=== PATIENT | male | born 1950 | race Caucasian/White ===

== ENCOUNTER 2018-06-28 10:30 | Outpatient (RCR) | payer OTHER, SELFPAY ==
--- NOTE | 2018-06-12 15:02 | PTTR_ITS ---
DATE: June 12, 2018 SUBJECTIVE: Michel returns to our clinic today having undergone a CHARLES revision performed by Dr. Ramirez in [place]. The patient reports the revision consisted of a cup liner replacement and femoral component replacement. The procedure was performed two weeks ago. He is sent with posterior hip precautions. At time of today's recheck: Pain number: 1/10 today and 6/10 at its worst Has had mild drainage from the incision. This is now covered by a Telfa pad. Has discussed this with his surgeon, and is independent with dressing changes. No redness or streaking is noted. Does have fullness through the leg due to some edema and mild lateral knee pain / distal IT band irritation. Meds: Celebrex and Eliquis x1 month post op. OBJECTIVE: Upon recheck - - Gait: The patient is independent with ambulation with use of a single axillary crutch on the left with a step through pattern. Mild antalgia noted. Mild decrease in extension at terminal stance on the right. ROM: Right hip ROM into flexion 75 A and 85 AA, abduction 25 A and 30 AA, external rotation 20 A and 30 AA, internal rotation was not tested secondary to precautions, extension 10 and flexion 120 with fullness reported at end range due to edema in the LE. Strength: Hip abduction 3-/5. Unable to perform any side lying anti gravity active abduction ROM. Quadriceps 4+/5 and hamstrings 4+/5, glute naresh 4-/5 compared to 5/5 on the left. Edema: The patient is noted to have significant edema throughout the thigh to the knee. He is wearing knee high Alberto Hose. Reports independence in elevation, and is icing the hip regularly. He admits with his other two hip replacements he experienced the same edema like presentation. Manual therapy: ([id number]). A/AAROM of the right hip through all planes, other than internal rotation. Worked on hamstring and quadriceps stretching. Therapeutic procedures ([id number]). * x See flow sheet: performed his HEP. This was progressed with hip extension self mobilization with gastroc soleus stretch, standing knee flexion for hamstrings, supine knee flexion abd/adduction to neutral and bridging. * * Ended with cryotherapy to the hip. Direct treatment time: 2:00 til 3:00 P.M. Assessment: Is holding up very well with pain control and ROM appears to be progressing well. I do feel he has excellent rehab potential, and appears very motivated to participate in P.T. ST wks 1) patient ambulating without an assisted device with minimal antalgia 2) increase strength by 1 grade or more for hip extension and hip abduction 3) patient's active hip ROM WNL LT wks 1) patient performing all self ADLs without limitations 2) decrease LEFS to less than 20% Plan: See patient 2x per week for progression of strengthening for hip stabilization and core stabilization exercises as well as manual therapy techniques for A/AAROM for the hip following precautions post operatively x6 weeks of no flexion past 90 , no crossing mid line and no internal rotation. Will discharge when the above goals have been met. Please contact me with any questions or concerns. Thank you for this referral. cc: Mark Rodriguez MM/john
--- NOTE | 2018-06-19 10:41 | PTTR_ITS ---
DATE: 06/19/18 SUBJECTIVE: Michel reports doing his HEP 2x per day. When he is thinking of it he tries to get in 3x per day, but has been more consistent with twice per day. No longer wearing his knee high Alberto Hose. He is now 3 wks post op, and admits his swelling is much more manageable. OBJECTIVE: Manual therapy: ([id number]). Right hip A/AAROM into flexion to 90 with empty end feel, abduction to 30 , ext rot to 30 to 35 and then performed hold relax mobs into abduction while positioned in supine. We then worked on AA hip extension in prone, achieving 10 to 15 . Then worked on quad stretch with hold relax in prone achieving 100 of knee flexion and hamstring stretching in supine. Therapeutic procedures ([id number]). * x See flow sheet: NuStep x7 min. at level #3. Progressed HEP with standing hip mobs into abduction as well as working on resisted partially bent knee SLR. * Ended with cryotherapy to the hip x10 minutes at no charge. Direct treatment time: 10:30 til 11:00 A.M. Assessment: Holding up well with ROM. In prone, with hip abducted by 5 to 10 he achieves close to 10 of internal rotation. Am not pushing this aggressively due to his precautions over the next couple of weeks. Incision is still covered by steri strips, and no drainage is noted. Plan: Continue as indicated above. MM/gc
--- NOTE | 2018-06-21 13:40 | PTTR_ITS ---
DATE: 06/21/18 SUBJECTIVE: Michel reports he hasn't been able to perform much of his HEP secondary to his busy work schedule at [employer]. Does feel that he is ambulating with less pain and is not using his single crutch for household ambulation, now. He shows up today without an assisted device. OBJECTIVE: Decreased stride length on the left LE as he comes off the involved LE prematurely, just following mid stance on the right. Manual therapy: ([id number]). Right hip A/AAROM into flexion, abduction, ext rotation and extension. The patient is blocked to 5 of extension on the right with anterior hip pain, likely some capsular restrictions. Discussed being a little more aggressive with his self mobilization into extension in standing. We worked on Grade 3 inferior glides, lateral distraction of the right hip followed by quadriceps and hamstring stretching. Direct treatment time: 10:30 til 11:00 A.M. Completed NuStep ending with ice post treatment. Assessment: Tight with end stage extension impacting his stride length on his left, as he is prematurely deweighting the right LE due to lack of extension. Will have him work on self mobilization techniques into extension, standing at his walker or against a wall, as working his abduction in a wide base of support stance with a trunk shift / weight shift to the left. Plan: Continue as indicated above. MM/gc
--- NOTE | 2018-06-26 15:10 | PTTR_ITS ---
DATE: 06/26/18 SUBJECTIVE: Michel states he has been more diligent with his self mobilization. Feels as though this has helped his abduction. Reports negotiating stairs reciprocally up and down with use of a railing. Has not been walking with an assisted device. OBJECTIVE: Manual therapy: ([id number]). Right hip mobs inferiorly and laterally, distractions, AAROM through flexion achieving 95 with empty end feel. Holding off to avoid surpassing excessively with his precautions. Abduction 30 to 35 . External rotation 35 with hold relax mobs and manual distraction. Performed hip flexor and quadriceps stretching in the modified Jose test position. Completed strengthening via Wellness with Garrett Guerrero ATC. He was set up on an in clinic program for core and hip stabilization. Direct treatment time: 30 min. from 10:30 til 11:00 A.M. Plan: Continue as indicated above. MM/gc
--- NOTE | 2018-06-28 10:30 | PTTR_ITS ---
DATE: 06/28/18 SUBJECTIVE: Michel states that he has been compliant with his HEP for strengthening. Is noticing better improvement with his abduction. Last day on his blood thinners is today. Manual therapy: ([id number]). R hip mobilization, lateral distraction, inferior glides as well as some anterior mobilization in prone with some extension AA motion, achieving 10 degrees. Also perform some quad and hip flexor stretching in prone and supine modified Jose test position. Did perform AAROM into hip abduction achieving nearly 35-40 degrees and ER mobilization in prone with knee flexed at 90 to 30-35 degrees. Ended with cryotherapy for 10 mins to the hip. Direct treatment time: 30 mins Total treatment time: 30 mins A: Making great gains with ROM. Still pretty tight with his extension. Will want to work on this a little more aggressively next visit. P:Continue 2x a week for mobilization, progressing into Therex with Garrett Guerrero , ATC MM/dl
== END 2018-06-29 23:59 | disposition home or self-care (01) ==
LOC: PT 10:30
PROVIDERS: PCP Family Medicine; Referring Provider Orthopaedic Surgery; Visit Provider Orthopaedic Surgery
DX: Z47.1 Aftercare following joint replacement surgery (principal); Z96.641 Presence of right artificial hip joint; G89.29 Other chronic pain; M25.551 Pain in right hip
CPT/HCPCS: 97110; 97140

== ENCOUNTER 2019-03-28 17:48 | Outpatient (REF) | payer OTHER, SELFPAY ==
[2019-03-28 21:04] LABS: Absolute Basophil Count 0.02 k/cumm (0.0-0.2); Absolute Eosinophil Count 0.07 k/cumm (0.0-0.7); Absolute Lymphocyte Count 1.26 k/cumm (1.2-3.4); Absolute Monocyte Count 0.38 k/cumm (0.11-0.7); Absolute Neutrophil Count 2.35 k/cumm (1.2-6.7); Basophils % 0.5; Eosinophils % 1.7; HGB 14.3 g/dL (13.5-17.5); Lymphocytes % 30.9; Mean Corp. HGB Concentration 34.9 g/dL (32.0-36.0); Mean Corpuscular Hemoglobin 34.5 pg (27.0-33.0); Mean Platelet Volume 10.6 fL (8.0-11.0); Monocytes % 9.3; Neutrophils % 57.6; Platelet Count 161 x1000/uL (130-400); RBC 4.14 m/cumm (4.50-6.00); RBC Distribution Width 11.9 % (11.8-14.1); White Blood Cell Count 4.08 k/cumm (4.4-10.8)
[2019-03-28 21:16] LABS: ALT 27 U/L (12-78); AST 26 U/L (15-37); Lipase 95 U/L (73-393)
[2019-04-02 13:17] LABS: Methylmalonic Acid 0.18 nmol/mL (<=0.40)
== END 2019-03-28 18:08 ==
LOC: NCHCN 17:48
PROVIDERS: PCP Family Medicine; Visit Provider Family Medicine
DX: R10.9 Unspecified abdominal pain (principal)
CPT/HCPCS: 80186; 83690; 84450; 84460; 85025

== ENCOUNTER 2019-05-24 11:52 | Outpatient (REF) | payer OTHER, SELFPAY | END 2019-05-24 12:12 | LOC: NCHCN 11:52 | PROVIDERS: PCP Family Medicine; Visit Provider Family Medicine | DX: R19.4 Change in bowel habit (principal) | CPT/HCPCS: 87177 ==

== ENCOUNTER 2019-10-03 15:43 | Outpatient (REF) | payer OTHER, SELFPAY ==
[2019-10-07 12:45] LABS: PSA, Screening 0.6 ng/mL (0.0-4.5)
== END 2019-10-03 16:03 ==
LOC: NCHCN 15:43
PROVIDERS: PCP Family Medicine; Visit Provider Family Medicine
DX: Z00.00 Encounter for general adult medical examination without abnormal findings (principal); Z12.5 Encounter for screening for malignant neoplasm of prostate
CPT/HCPCS: 84153

== ENCOUNTER 2019-12-05 11:39 | Outpatient (CLI) | payer OTHER, SELFPAY ==
--- NOTE | 2019-12-05 11:47 | DI.RAD_ITS ---
EXAM: XR HIP RT AP LAT ONLY CLINICAL HISTORY: HIP PAIN TECHNIQUE: COMPARISON: No exams were available for comparison FINDINGS: Three views were obtained. There is a total hip joint replacement in position. Components appear we ll seated. No other significant bony seen. IMPRESSION:
== END 2019-12-05 11:59 ==
PROVIDERS: PCP Family Medicine; Visit Provider Student in an Organized Health Care Education/Training Program
DX: M25.551 Pain in right hip (principal); Z96.641 Presence of right artificial hip joint
CPT/HCPCS: 73502

== ENCOUNTER 2020-10-09 14:25 | Outpatient (REF) | payer OTHER, SELFPAY ==
[2020-10-09 19:09] LABS: Abs Immature Grans 0.01 10^3/uL (0.0-0.06); Absolute Basophil Count 0.04 10^3/uL (0.0-0.2); Absolute Eosinophil Count 0.08 10^3/uL (0.0-0.7); Absolute Lymphocyte Count 1.76 10^3/uL (1.2-3.4); Absolute Monocyte Count 0.52 10^3/uL (0.1-0.8); Absolute Neutrophil Count 2.28 10^3/uL (1.2-6.7); Basophils % 0.9; Eosinophils % 1.7; HCT 42.6 % (40.0-50.0); HGB 14.9 g/dL (13.5-17.5); Immature Grans % 0.2; Lymphocytes % 37.5; MCH 34.6 pg (27.0-33.0); MCV 98.8 fL (80-95); MPV 11.7 fL (8.0-11.0); Monocytes % 11.1; Neutrophils % 48.6; Nucleated RBC 0 %; Platelet Count 178 10^3/uL (130-400); RBC 4.31 10^6/uL (4.36-5.78); RDW 11.4 % (11.8-14.1); RDW-SD 42.3 fL; WBC 4.69 10^3/uL (4.4-10.8)
[2020-10-09 19:53] LABS: ALT 24 U/L (16-63); AST 29 U/L (15-37); Albumin 3.9 g/dL (3.4-5.0); Alkaline Phosphatase 92 U/L (46-116); Anion Gap 8.6 mmol/L (3-11); BUN 18 mg/dL (7-18); Bilirubin, Total 0.7 mg/dL (0.2-1.0); CO2 28.4 mmol/L (21.0-32.0); CREATININE 1.08 mg/dL (0.70-1.30); Calcium 8.8 mg/dL (8.5-10.1); Calculated LDL 91 mg/dL (<100); Chloride 103 mmol/L (98-107); Cholesterol 165 mg/dL (<200); Glucose 87 mg/dL (74-106); HDL Cholesterol 62 mg/dL (40-60); Potassium 4.1 mmol/L (3.5-5.1); Sodium 140 mmol/L (136-145); Total Protein 6.9 g/dL (6.4-8.2); Triglyceride 63 mg/dL (<150); Vitamin B12 315 pg/mL (193-986)
[2020-10-09 19:59] LABS: Lipase 67 U/L (73-393)
[2020-10-12 09:59] LABS: PSA, Screening 0.6 ng/mL (0.0-4.5)
== END 2020-10-09 14:45 ==
LOC: NCHCN 14:25
PROVIDERS: PCP Family Medicine; Visit Provider Family Medicine
DX: Z00.00 Encounter for general adult medical examination without abnormal findings (principal); Z13.220 Encounter for screening for lipoid disorders; Z13.228 Encounter for screening for other metabolic disorders; Z12.5 Encounter for screening for malignant neoplasm of prostate
CPT/HCPCS: 80053; 80061; 83690; 84153; 82607; 85025

== ENCOUNTER 2020-10-29 11:38 | Outpatient (REF) | payer OTHER, SELFPAY ==
--- NOTE | 2020-10-29 10:45 | SKI_PTH ---
PATIENT: Michel Kilgore LOC: [facility] U#:[id number] AGE/SX: 70/M ROOM: RE10/29/[address]: FABIANA Soares : 1950 BED: DIS: 10/29/2020 SPEC #: [id number] RECD: 10/29/20 12:56 STATUS: MARION REQ #: [id number] MANSI: 10/29/20 10:[address]: Aracelis Wei DEPT: Surgical Specimen RECD BY: Martha Rush ENTERED: 10/29/20 12:57 SP TYPE: LEVON OTHR DR: Jessica Longoria V Tissues: 1 - SKIN BIOPSY(SHAVE/PUNCH) Procedures: IMMUNOPEROXIDASE STAIN GROSS AND MICRO LEVEL 3 Comments: [id number]
== END 2020-10-29 11:58 ==
LOC: LBN 11:38
PROVIDERS: PCP Family Medicine; Visit Provider Physical Therapy Assistant
DX: M67.88 Other specified disorders of synovium and tendon, other site (principal); M67.48 Ganglion, other site
CPT/HCPCS: 88304; 88305; 88361

== ENCOUNTER 2021-06-20 15:00 | Observation (INO) | payer OTHER, SELFPAY ==
[2021-06-20] VITALS (21 sets, daily range): BP systolic 115–178; BP diastolic 61–84; PULSE 47–76; RESP 16–22; TEMP 36.1–36.8; O2SAT 94–100
--- NOTE | 2021-06-20 15:00 | RT.EKG_ITS ---
APPROVED REPORT Exam: Resting ECG Reason for Exam: confusion Patient Location: E HR:56 bpm ECG Measurements Heart Rate 56 AXIS AZ 229 P 0 QRSd 121 QRS -52 QT 446 T 24 QTc 418 Conclusion Sinus bradycardia...rate< 60 Atrial premature complex...SV complex w/ short R-R interval Prolonged AZ interval...AZ >220, V-rate 50- 90 Right bundle branch block...QRSd>120, terminal axis(90,270) Inferior infarct, old...Q >35mS, II III aVF. Sinus. RBBB. No STEMI. I have reviewed and interpreted ECG and agree with software generated interpretation.
--- NOTE | 2021-06-20 15:05 | ED.GENADUL_ITS ---
Discharge Plan Disposition Patient Disposition: [facility] INPATIENT Condition: Stable Discharge Details Clinical Impression: Amnesia, Confusion Primary Care Provider: Jessica Longoria V ED Provider: Yissel Hopkins Home Meds and New Rx's Prescriptions: No Action famotidine 10 mg tablet 10 mg PO DAILY RF: 0 multivitamin [Daily Multi-Vitamin] Tablet 1 tab PO DAILY RF: 0 Gaviscon Extra Strength 254-237.5 mg/5 mL suspension 5 ml PO TID RF: 0 magnesium 200 MG tablet 200 mg PO HS RF: 0 cholecalciferol (vitamin D3) 1,000 UNITS tablet 1 tab PO DAILY RF: 0 Medical Decision Making 71-year-old male with a history of GERD presents for confusion and memory loss that occurred during an 11 mile bike ride prior to arrival. EKG notes a rate of 56, sinus, right bundle branch block, no STEMI. Vitals within normal limits. Patient states his heart rate is usually in the 40s. Patient appears comfortable and nontoxic. He has no focal deficits. Suspect most likely dehydration in the setting of possibly low blood sugar or low blood pressure. Also consider transient global amnesia, acute CVA, electrolyte abnormality, arrhythmia. Will place an IV, bolus IV fluids, screening labs, CTA head and neck and reassess. Labs and imaging reviewed and unremarkable. Normal white blood cell count. Normal electrolytes. Troponin negative. Urinalysis notes blood but no acute infection. CTA head and neck and chest x-ray negative. Patient reassessed after fluids and feels better. Discussed that in the setting of amnesia and confusion, will recommend admission overnight for telemetry monitoring with plan for MRI brain and neurology evaluation tomorrow. Case discussed with hospitalist who accepts patient for admission. Consult placed to [facility] neurology for recommendations. [facility] neurology agrees that this potentially could be transient global amnesia - agrees with plan for MRI brain and also recommends EEG -- recommends aspirin if this is potentially a cardioembolic event. Medical Records Medical records reviewed: Yes I reviewed the patient's medical records. Imaging Data Radiologic Study: Radiologist's impression: CT Angiography Head With Contrast, Arteriography Exam date and time: 06/20/2021 4:13 PM Age: 71 years old Clinical indication: Other: Possible CVA, R/O acute disease TECHNIQUE: Imaging protocol: Computed tomography angiography of the head with contrast. Exam focused on the arteries. 3D rendering (Not supervised by radiologist): MIP and/or 3D reconstructed images were created by the technologist. Contrast material: OMNIPAQUE 350; Contrast volume: 85 ml; Contrast route: INTRAVENOUS (IV); COMPARISON: No relevant prior studies available. FINDINGS: The bolus of contrast is low on CTA of head. ANTERIOR CIRCULATION: Right internal carotid artery: Intracranial segment is patent with no significant stenosis. No aneurysm. Right middle cerebral artery: No occlusion or significant stenosis. No aneurysm. Right anterior cerebral artery: No occlusion or significant stenosis. No aneurysm. Left internal carotid artery: Intracranial segment is patent with no significant stenosis. No aneurysm. Left middle cerebral artery: No occlusion or significant stenosis. No aneurysm. Left anterior cerebral artery: No occlusion or significant stenosis. No aneurysm. POSTERIOR CIRCULATION: Right vertebral artery: No occlusion or significant stenosis. No aneurysm. Left vertebral artery: No occlusion or significant stenosis. No aneurysm. Basilar artery: No occlusion or significant stenosis. No aneurysm. Right posterior cerebral artery: . No occlusion or significant stenosis. No aneurysm. Left posterior cerebral artery: No occlusion or significant stenosis. No aneurysm. Brain: No definite mass, mass effect, or midline shift. Cerebral ventricles: No ventriculomegaly. Pituitary gland and sella: There is a partial empty sella. Bones/joints: No acute fracture. Soft tissues: Unremarkable. Paranasal sinuses: There is mild mucous retention cyst or polyp in the left maxillary sinus. Mild mucosal thickening in the bilateral frontal sinuses, anterior ethmoidal air cells. IMPRESSION: 1. No major vessel cut off or high-grade stenosis in the arteries of the [id number]. 2. No acute intracranial abnormality. CT Angiography Neck With Contrast Exam date and time: 06/20/2021 4:13 PM Age: 71 years old Clinical indication: Other: Possible CVA, R/O acute disease TECHNIQUE: Imaging protocol: Computed tomography angiography of the neck with contrast. 3D rendering (Not supervised by radiologist): MIP and/or 3D reconstructed images were created by the technologist. Contrast material: OMNIPAQUE 350; Contrast volume: 85 ml; Contrast route: INTRAVENOUS (IV); COMPARISON: No relevant prior studies available. FINDINGS: Right common carotid artery: No stenosis. No dissection or occlusion. Right internal carotid artery: No stenosis of the extracranial segment. No dissection or occlusion. Right external carotid artery: No occlusion or stenosis of the origin. Left common carotid artery: No stenosis. No dissection or occlusion. Left internal carotid artery: There calcification of left carotid bifurcation and origin of the left internal carotid artery without significant stenosis by NASCET criteria. No stenosis of the extracranial segment. No dissection or occlusion. Left external carotid artery: No occlusion or stenosis of the origin. Right vertebral artery: No stenosis. No dissection or occlusion. Left vertebral artery: No stenosis. No dissection or occlusion. Thyroid: There is a 6 mm nodule in the left lobe of the thyroid gland suspected. Soft tissues: Normal. No significant soft tissue swelling. Bones/joints: No acute fracture. There are degenerative changes in the cervical spine. There is focal at the level of C6. There is prominent posterior osteophyte spurring at C4-C5, C5-C6 without critical spinal canal stenosis. Moderate loss of disc height at C4-C5, C5-C6 and C6-C7 present. ossification of the posterior lung which or ligaments . IMPRESSION: 1. No internal carotid artery stenosis by NASCET criteria or occlusion. 2. No stenosis in the vertebral arteries in the neck. Lab Data Lab results reviewed: Yes I reviewed the patient's lab results. Labs: Laboratory Tests Range/Units 06/20/21 06/20/21 06/20/21 15:20 15:35 15:35 WBC (4.4-10.8) 10^3/uL 5.94 RBC (4.36-5.78) 10^6/uL 4.58 Hgb (13.5-17.5) g/dL 15.4 Hct (40.0-50.0) % 45.7 MCV (80-95) fL 99.8 H MCH (27.0-33.0) pg 33.6 H MCHC (32.0-36.0) % 33.7 RDW (11.8-14.1) % 11.7 L Plt Count (130-400) 10^3/uL 164 MPV (8.0-11.0) fL 9.3 Immature Gran % 0.3 Neutrophils % 71.3 Lymphocytes % 20.2 Monocytes % 7.4 Eosinophils % 0.5 Basophils % 0.3 Nucleated RBC % % 0 Absolute Neutrophils (1.2-6.7) 10^3/uL 4.23 Absolute Lymphocytes (1.2-3.4) 10^3/uL 1.20 Absolute Monocytes (0.1-0.8) 10^3/uL 0.44 Absolute Eosinophils (0.0-0.7) 10^3/uL 0.03 Absolute Basophils (0.0-0.2) 10^3/uL 0.02 Sodium (136-145) mmol/L 144 Potassium (3.5-5.1) mmol/L 4.7 Chloride (98-107) mmol/L 105 Carbon Dioxide (21.0-32.0) mmol/L 28.1 Anion Gap (3-11) mmol/L 10.9 BUN (7-18) mg/dL 18 Creatinine (0.70-1.30) mg/dL 1.4 H Estimated GFR/1.73 m2 (mL/min/1.73m2) 50.25 Glucose (74-106) mg/dL 87 Calcium (8.5-10.1) mg/dL 9.2 Magnesium (1.8-2.4) mg/dL 2.0 Total Bilirubin (0.2-1.0) mg/dL 1.2 H AST (15-37) U/L 29 ALT (16-63) U/L 24 Alkaline Phosphatase (46-116) U/L 94 Troponin I (<0.06) ng/mL < 0.05 Total Protein (6.4-8.2) g/dL 7.7 Albumin (3.4-5.0) g/dL 4.1 Urine Color (Yellow) Yellow Urine Clarity (Clear) Clear Urine pH (5-8) 7.0 Ur Specific [place] (1.005-1.025) 1.015 Urine Protein (Negative) mg/dL 30 H Urine Ketones (Negative) mg/dL Trace H Urine Blood (Negative) Trace-intact H Urine Nitrite (Negative) Negative Urine Bilirubin (Negative) Negative Urine Urobilinogen (Up TO 0.2) EU/dL 0.2 Ur Leukocyte Esterase (Negative) Negative Urine RBC (0-2) HPF 3-5 H Urine WBC (0-5) HPF 0-2 Ur Epithelial Cells (Negative) HPF Negative Urine Crystals (Negative) HPF Negative Urine Bacteria (Negative) HPF Rare Urine Casts (Negative) LPF >50 Hyaline Urine Mucus (Negative) Heavy Ur Culture Indicated? No Urine Glucose (Negative) mg/dL Negative ECG Data Attestation: I personally reviewed and interpreted this ECG (s) as follows: Interpretation: rate of 56, sinus, RBBB. PACs. Prolonged CT interval at 229. QTc 418. HPI General Mode of arrival: ambulatory . Date/Time Provider Initiated Documentation: 06/20/21 15:00 . Limitations to Documentation: no limitations . Information obtained by: patient . HPI Narrative: Patient is a 71-year-old male with a history of GERD who presents to the ED with complaint of confusion, disorientation and memory loss that occurred during a bike ride today. Patient states he ate a banana this morning which is less than usual and then went on a bike ride. He states he does not have memory of the hours before the bike ride or during the bike ride. He states the friend became concerned when during the bike ride he kept repeating himself and complained to his friend that he felt disoriented. states that patient was noted to make repetitive statements on the way to the ED with his friend. Patient states he drank plenty of water today. He states he went on an 11 mile bike ride today which is not unusual for him. He denies dizziness but states he felt off . He denies any recent illness, fever, headache, dizziness, chest pain, shortness of breath, nausea, vomiting, new medications, recent travel or known sick contacts. Related Data Home Medications Medication Instructions Recorded Confirmed cholecalciferol (vitamin D3) 1 tab PO DAILY 07/22/15 06/20/21 magnesium 200 mg PO HS 07/22/15 06/20/21 famotidine 10 mg tablet 10 mg PO DAILY 12/05/19 06/20/21 aluminum hydrox-magnesium carb 254 5 ml PO TID 10/29/20 06/20/21 mg-237.5 mg/5 mL oral suspension multivitamin 1 tab PO DAILY 10/29/20 06/20/21 Allergies Allergy/AdvReac Type Severity Reaction Status Date / Time hayfever Allergy Uncoded 06/20/21 15:09 Review of Systems All systems reviewed & are unremarkable except as noted in HPI and below Constitutional Constitutional: Reports as per HPI, Denies chills and Denies fever(s) Eyes Eyes: Denies blurry vision ENT Ears, Nose, Mouth, and Throat: Denies dizziness, Denies sore throat and Denies throat swelling Cardiovascular Cardiovascular: Denies chest pain and Denies dyspnea Respiratory Respiratory: Denies cough and Denies dyspnea Gastrointestinal Gastrointestinal: Denies abdominal pain, Denies diarrhea and Denies vomiting Genitourinary Genitourinary: Denies hematuria and Denies dysuria Musculoskeletal Musculoskeletal: Denies back pain and Denies numbness Integumentary/Breasts Skin/Breast: Denies lesions and Denies rash Neurologic Neurologic: Denies dizziness, Denies localized weakness and Denies numbness Allergic/Immunologic Allergic/Immunologic: Denies throat swelling [facility] Medical History (Updated 06/20/21 @ 17:58 by Yissel Hopkins DO) GERD (gastroesophageal reflux disease) Surgical History (Updated 06/20/21 @ 16:56 by Yissel Hopkins DO) History of hip replacement Social History Smoking/Tobacco Use Status: Never Smoking risk assessment performed?: Yes Alcohol Intake: current Alcohol Intake frequency: holidays/special occasions only Drug use: Never Substance use type: does not use Current gender identity: male Exam Const General: cooperative, healthy appearing and no acute distress HENMT Head: normal to inspection Face and sinus: normal facial exam Eyes General: appearance normal, both eyes and all related structures Pupils: PERRL EOM: EOM intact bilaterally Neck Neck: normal visual inspection and No submandibular swelling Lymphatic: no lymphadenopathy noted Chest Chest: normal inspection of the chest and no tenderness Resp Effort & Inspection: normal respiratory effort and able to speak in complete sentences Auscultation: clear to auscultation bilaterally Cardio Rate: regular rate Rhythm: regular rhythm GI Inspection: normal to inspection Palpation: soft, not firm, not rigid and nontender Auscultation: normal bowel sounds Skin General skin exam: no rashes or lesions noted Neuro General: patient alert, patient awake, patient oriented x3, moves all extremities, no meningeal signs and no focal motor deficits Cognition: normal cognition Speech: speech normal Motor: muscle tone normal throughout, strength 5/5 throughout and no pronator drift Sensory Exam: no sensory deficits noted Extrem General: normal to inspection, full ROM, capillary refill normal, no calf tenderness bilaterally and no edema Psych Appearance: grossly normal Mental Status: mental status grossly normal Speech and Movement: speech and movement normal Affect: normal affect
[2021-06-20 15:24] LABS: Bilirubin Negative (Negative); Blood Trace-intact (Negative); Clarity Clear (Clear); Glucose Negative (Negative); Ketones Trace mg/dL (Negative); Leukocyte Esterase Negative (Negative); Nitrite Negative (Negative); Specific Gravity 1.015 (1.005-1.025); Urobilinogen 0.2 EU/dL (Up TO 0.2)
[2021-06-20 15:33] LABS: Bacteria Rare HPF (Negative); C & S Indicated? No; Crystals Negative HPF (Negative); Epithelial Cells Negative HPF (Negative); Mucus Heavy (Negative); WBC 0-2 HPF (0-5)
[2021-06-20 15:43] LABS: Abs Immature Grans 0.02 10^3/uL (0.0-0.06); Absolute Basophil Count 0.02 10^3/uL (0.0-0.2); Absolute Eosinophil Count 0.03 10^3/uL (0.0-0.7); Absolute Monocyte Count 0.44 10^3/uL (0.1-0.8); Absolute Neutrophil Count 4.23 10^3/uL (1.2-6.7); Basophils % 0.3; Eosinophils % 0.5; HCT 45.7 % (40.0-50.0); HGB 15.4 g/dL (13.5-17.5); Immature Grans % 0.3; Lymphocytes % 20.2; MCH 33.6 pg (27.0-33.0); MCHC 33.7 % (32.0-36.0); MCV 99.8 fL (80-95); MPV 9.3 fL (8.0-11.0); Monocytes % 7.4; Neutrophils % 71.3; Nucleated RBC 0 %; Platelet Count 164 10^3/uL (130-400); RBC 4.58 10^6/uL (4.36-5.78); RDW 11.7 % (11.8-14.1); RDW-SD 43.1 fL; WBC 5.94 10^3/uL (4.4-10.8)
[2021-06-20] MEDS: Normal Saline 1,000 ML 1000 ML IV (15:49)
--- NOTE | 2021-06-20 16:00 | DI.CT_ITS ---
Exam(s) CT BRAIN NECK CTA EXAM: CT BRAIN NECK CTA CLINICAL HISTORY: transient amnesia, r/o acute cva. TECHNIQUE: Imaging Protocol: Axial CT angiography was performed with multi-slice acquisition and mu lti-planar and/or 3D reconstructions. CONTRAST MATERIAL: Intravenous: Omnipaque 350 Contrast volume:85cc COMPARISON: No exams were available for comparison FINDINGS: CTA Neck W: Aortic arch anatomy: The aortic arch anatomy is conventional. Anterior circulation: Both common carotid arteries ascend with normal luminal diameters. There is mild calcified plaque on the medial wall of the proximal right ICA without significant stenosis at this level. No soft plaqu e evident. The right internal carotid artery above this level is nicely patent in the upper neck skull base-cartwright tid canal. The left carotid bifurcation exhibits plaque both arora but no significant stenosis and there is no s ignificant stenosis in the proximal left internal carotid artery nor in this vessel more superiorly i n the neck and skull base. Posterior circulation: Both vertebral arteries originated conventional fashion off of the subclavian arteries and there is n o significant stenosis in the subclavian arteries proximal to the vertebral artery takeoff points. I n the foramen transverse area and both vertebral arteries ascend with normal equal luminal diameters and no evidence of thrombosis nor dissection. At the skull base both vertebral arteries contribute t o the formation basilar artery. CTA Brain W: Anterior circulation: Both internal carotid arteries are patent in the skull base-carotid canals as well as in the cavernou s sinuses. Calcified plaque seen in the supraclinoid aspect of these vessels but no tight stenosis. Both middle cerebral arteries appear patent out to the sylvian fissure branches. Both A1 segments a re patent. Both anterior cerebral arteries are patent. There is no evidence of aneurysm at the leve l of the anterior communicating artery. Posterior circulation: Basilar arteries patent and ascends in the midline. Distally the basilar artery terminates as patent bilateral posterior cerebral arteries. There is no aneurysm at the tip of the basilar artery. The superior cerebellar arteries are poorly opacified. There is no evidence of aneurysm at the tip of th e basilar artery. CT BRAIN: There is no evidence of intracranial hemorrhage, mass effect, or shift of midline structures. There are no extra-axial fluid collections. Ventricles are not enlarged or shifted and there is no blood w ithin the ventricular system nor within the basal cisterns. There are no ring enhancing lesions in t he brain and no abnormal meningeal enhancement. IMPRESSION: 1. There is mild calcified plaque at the carotid bifurcations, slightly more so on the left side. Ho wever, there is no significant stenosis evident at these levels nor elsewhere in the neck. Both vert ebral arteries are patent. 2. No evidence of intraluminal thrombosis nor aneurysm in the anterior intracranial circulation. 3. In the posterior intracranial circulation there is less than typically seen opacification of both superior cerebellar arteries, possibly significant. Posterior cerebral arteries are patent bilatera lly. No evidence of significant atherosclerotic disease in the basilar artery. 4. No acute intracranial findings. No ring enhancing lesions in the brain and no abnormal meningea l enhancement. RADIATION DOSE DELIVERED: 2,108.58mGy.cm Total DLP DATA REPOSITORY: All CT scans at this facility are submitted to the National Radiology Data Registry (NRDR) Dose Index Registry (DIR) with the [employer] (A[employer]). RADIATION OPTIMIZATION: All CT scans at this facility use at least one of these dose optimization te chniques: automated exposure control; mA and/or kV adjustment per patient size (includes targeted exa ms where dose is matched to clinical indication); or iterative reconstruction.
[2021-06-20 16:07] LABS: Albumin 4.1 g/dL (3.4-5.0); BUN 18 mg/dL (7-18); CREATININE 1.4 mg/dL (0.70-1.30); Calcium 9.2 mg/dL (8.5-10.1); Estimated GFR 50.25 (mL/min/1.73m2); Glucose 87 mg/dL (74-106); Total Protein 7.7 g/dL (6.4-8.2)
[2021-06-20 16:08] LABS: ALT 24 U/L (16-63); AST 29 U/L (15-37); Alkaline Phosphatase 94 U/L (46-116); Anion Gap 10.9 mmol/L (3-11); Bilirubin, Total 1.2 mg/dL (0.2-1.0); CO2 28.1 mmol/L (21.0-32.0); Chloride 105 mmol/L (98-107); Potassium 4.7 mmol/L (3.5-5.1); Sodium 144 mmol/L (136-145); Troponin I < 0.05 ng/mL (<0.06)
--- NOTE | 2021-06-20 16:45 | DI.RAD_ITS ---
Exam(s) XR CHEST 2V PA LATERAL EXAM: XR CHEST 2V PA LATERAL CLINICAL HISTORY: possible cva, r/o acute disease. TECHNIQUE: 2D digital imaging was performed. COMPARISON: No exams were available for comparison FINDINGS: Heart size is normal. The mediastinum is not widened. Lungs are clear. No infiltrates nor pleural effusions. IMPRESSION: No acute pulmonary findings. DATA REPOSITORY: RADIATION DOSE DELIVERED:
[2021-06-20] MEDS: Omnipaque 350 MG/ML 100 ML BTL IJ (16:52)
--- NOTE | 2021-06-20 17:04 | DI.VRAD_ITS ---
PROCEDURE INFORMATION: Exam: XR Chest Exam date and time: 06/20/2021 4:51 PM Age: 71 years old Clinical indication: Other: Possible CVA, R/O acute disease TECHNIQUE: Imaging protocol: XR of the chest. Views: 2 views. COMPARISON: CR RIGHT CLAVICLE 07/22/2015 6:40 PM FINDINGS: Lungs: Lungs are hyperinflated with flattening of the hemidiaphragms. No focal consolidation. Pleural spaces: No pleural effusion. No pneumothorax. Heart/Mediastinum: No cardiomegaly. Bones/joints: Unremarkable. IMPRESSION: No acute pulmonary process. Dictated and Authenticated by: Vicente Naidu MD. Ordering:TONIA Dey MD
--- NOTE | 2021-06-20 17:19 | DI.VRAD_ITS ---
PROCEDURE INFORMATION: Exam: CT Angiography Head With Contrast, Arteriography Exam date and time: 06/20/2021 4:13 PM Age: 71 years old Clinical indication: Other: Possible CVA, R/O acute disease TECHNIQUE: Imaging protocol: Computed tomography angiography of the head with contrast. Exam focused on the arteries. 3D rendering (Not supervised by radiologist): MIP and/or 3D reconstructed images were created by the technologist. Contrast material: OMNIPAQUE 350; Contrast volume: 85 ml; Contrast route: INTRAVENOUS (IV); COMPARISON: No relevant prior studies available. FINDINGS: The bolus of contrast is low on CTA of head. ANTERIOR CIRCULATION: Right internal carotid artery: Intracranial segment is patent with no significant stenosis. No aneurysm. Right middle cerebral artery: No occlusion or significant stenosis. No aneurysm. Right anterior cerebral artery: No occlusion or significant stenosis. No aneurysm. Left internal carotid artery: Intracranial segment is patent with no significant stenosis. No aneurysm. Left middle cerebral artery: No occlusion or significant stenosis. No aneurysm. Left anterior cerebral artery: No occlusion or significant stenosis. No aneurysm. POSTERIOR CIRCULATION: Right vertebral artery: No occlusion or significant stenosis. No aneurysm. Left vertebral artery: No occlusion or significant stenosis. No aneurysm. Basilar artery: No occlusion or significant stenosis. No aneurysm. Right posterior cerebral artery: . No occlusion or significant stenosis. No aneurysm. Left posterior cerebral artery: No occlusion or significant stenosis. No aneurysm. Brain: No definite mass, mass effect, or midline shift. Cerebral ventricles: No ventriculomegaly. Pituitary gland and sella: There is a partial empty sella. Bones/joints: No acute fracture. Soft tissues: Unremarkable. Paranasal sinuses: There is mild mucous retention cyst or polyp in the left maxillary sinus. Mild mucosal thickening in the bilateral frontal sinuses, anterior ethmoidal air cells. IMPRESSION: 1. No major vessel cut off or high-grade stenosis in the arteries of the [id number]. 2. No acute intracranial abnormality. PROCEDURE INFORMATION: Exam: CT Angiography Neck With Contrast Exam date and time: 06/20/2021 4:13 PM Age: 71 years old Clinical indication: Other: Possible CVA, R/O acute disease TECHNIQUE: Imaging protocol: Computed tomography angiography of the neck with contrast. 3D rendering (Not supervised by radiologist): MIP and/or 3D reconstructed images were created by the technologist. Contrast material: OMNIPAQUE 350; Contrast volume: 85 ml; Contrast route: INTRAVENOUS (IV); COMPARISON: No relevant prior studies available. FINDINGS: Right common carotid artery: No stenosis. No dissection or occlusion. Right internal carotid artery: No stenosis of the extracranial segment. No dissection or occlusion. Right external carotid artery: No occlusion or stenosis of the origin. Left common carotid artery: No stenosis. No dissection or occlusion. Left internal carotid artery: There calcification of left carotid bifurcation and origin of the left internal carotid artery without significant stenosis by NASCET criteria. No stenosis of the extracranial segment. No dissection or occlusion. Left external carotid artery: No occlusion or stenosis of the origin. Right vertebral artery: No stenosis. No dissection or occlusion. Left vertebral artery: No stenosis. No dissection or occlusion. Thyroid: There is a 6 mm nodule in the left lobe of the thyroid gland suspected. Soft tissues: Normal. No significant soft tissue swelling. Bones/joints: No acute fracture. There are degenerative changes in the cervical spine. There is focal at the level of C6. There is prominent posterior osteophyte spurring at C4-C5, C5-C6 without critical spinal canal stenosis. Moderate loss of disc height at C4-C5, C5-C6 and C6-C7 present. ossification of the posterior lung which or ligaments . IMPRESSION: 1. No internal carotid artery stenosis by NASCET criteria or occlusion. 2. No stenosis in the vertebral arteries in the neck. REFERENCES: NASCET CRITERIA. The degree of internal carotid artery stenosis is based on NASCET criteria. Normal is no stenosis. Mild is less than 50% stenosis. Moderate is 50-69% stenosis. Severe is 70% to 99% stenosis. Total occlusion is no detectable patent lumen. Dictated and Authenticated by: Vicente Naidu MD. Ordering:TONIA Dey MD
[2021-06-20 18:22] LABS: Source Nasal/Nares
[2021-06-20] MEDS: Aspirin 325 MG TAB PO (18:50)
[2021-06-20 19:12] LABS: COVID-19 PCR Negative (Negative)
--- NOTE | 2021-06-20 20:06 | W.PM.HP.N ---
Date of service: 06/20/21 Time of Service: 20:07 Assessment and Plan Assessment and plan (1) Transient global amnesia: Status: Suspected Assessment and plan: Monitor on tele with neurochecks. Check MRI, EEG, echo. Empiric aspirin. Neuro consult tomorrow. Permissive hypertension. (2) RBBB: Status: Acute Assessment and plan: There are no prior EKGs for comparison, but this does raise the question of possible underlying pulmonary disease and possibility of Right heart issues/LA enlargement. Obtain echo. (3) GABY (acute kidney injury): Status: Acute Assessment and plan: In setting of physical exertion/dehydration. Hydrate gently. R/o urinary retention as well with PVRs. (4) Dehydration after exertion: Status: Acute Assessment and plan: As above - gently hydrate (5) Macrocytosis: Status: Chronic Assessment and plan: Check anemia studies (6) DVT prophylaxis: Status: Acute Assessment and plan: SC lovenox (7) Discharge planning issues: Status: Acute Assessment and plan: Full code History of Present Illness History of Present Illness Chief Complaint: confusion; cannot remember part of the day today Narrative: Mr Kilgore is a 71 year old male with PMHx of opthalmoplegic migraines, 1st degree AV block/RBBB/sinus bradycardia and GERD who enjoys mountain biking on regular basis and went on a bike ride with a friend earlier today, when he was noted to be repeating the same thing and was acting off. There was no trauma or injury during today's ride and there have been no recent falls. In the ED, the patient stated that he could not recall going on the bike ride at all today and only remembered parts of this morning. His workup in the ED has been essentially negative and included a CT/CTA head/neck, labs, COVID-19 PCR, nonischemic EKG, though it does show a RBBB and a negative torponin. Neurology consultation was sought via phone with [facility]. While transient global amnesia appears most likely, an EEG was also recommended to r/o a seizure. The patient was recommended to be initiated on aspirin in case of a cardioembolic event. Of note, the patient has been in sinus bradycardia (his baseline) but has not had any evidence of arrhythmias on telemetry. The patient had a negative exercise EKG stress test in 2018 at [facility]. Observation on hospitalist service was requested. Of note, the patient now recalls a lot more of the day, including this morning. The patient recalls some of the ride and denies feeling his usual pre-migraine aura, chest pain, palpitations, shortness of breath or nausea. He recalls only having a banana for breakfast, which is a lot less than he usually eats. He has felt better since eating. He has not been hypoglycemic here. Review of Systems All systems reviewed & are unremarkable except as noted in HPI and below PFSH Medical History (Updated 06/20/21 @ 21:27 by Marce Epps MD) 1st degree AV block BPH (benign prostatic hyperplasia) GERD (gastroesophageal reflux disease) Ophthalmoplegic migraine Raynauds syndrome RBBB Surgical History (Updated 06/20/21 @ 21:22 by Marce Epps MD) H/O esophagogastroduodenoscopy History of hip replacement H/o BIlateral hip replacements as well as revision of R total hip replacement Family History (Updated 06/20/21 @ 21:23 by Marce Epps MD) Father Heart disease Cancer lung cancer (smoker) Mother Cancer leiomyosarcoma Maternal Uncle Cancer leiomyosarcoma Paternal Grandfather Cancer brain tumor Brother Cancer stomach malignancy, unsure of cell type Social History Smoking/Tobacco Use Status: Never Smoking risk assessment performed?: Yes Alcohol Intake: current Alcohol Intake frequency: holidays/special occasions only Drug use: Never Substance use type: does not use Current gender identity: male Meds Allergies and Home Medications Allergies Allergy/AdvReac Type Severity Reaction Status Date / Time hayfever Allergy Uncoded 06/20/21 15:09 Home Medications Medication Instructions Recorded Confirmed Type cholecalciferol (vitamin D3) 1 tab PO DAILY 07/22/15 06/20/21 History magnesium 200 mg PO HS 07/22/15 06/20/21 History famotidine 10 mg tablet 10 mg PO DAILY 12/05/19 06/20/21 History aluminum hydrox-magnesium carb 254 5 ml PO TID 10/29/20 06/20/21 History mg-237.5 mg/5 mL oral suspension multivitamin 1 tab PO DAILY 10/29/20 06/20/21 History Exam Narrative Exam Narrative: General: Very pleasant middle-aged male, A&Ox3, remembers what was told to him in the ED and has a good understanding of his current clinical situation Neurological: A&Ox3, no focal deficits. CN II - XII intact, 5/5 strength in all extremities Psychiatric: Appropriate speech pattern, content Skin: Visible skin intact HEENT: Atraumatic, normocephalic, EOMI, dry MM, clear oropharynx, no submandibular or cervical lymphadenopathy, no goiter or JVD Cardiovascular: RRR, bradycardic, no m/r/g Lungs: CTAB Gastrointestinal: soft,nontender,nondistneded Genitourinary: dferred Extremities: no edema/clubbing/cyanosis, +1 pedal pulses B, afua pedis and cutis. Results Imaging Additional studies: EKG: Sinus bradycardia, HR 56, RBBB, prolonged AL interval, no acute ischemia Imaging Studies: CXR: No acute pulmonary process. CT/CTA head: 1. No major vessel cut off or high-grade stenosis in the arteries of the [id number]-[id number]. 2. No acute intracranial abnormality. CTA neck: 1. No internal carotid artery stenosis by NASCET criteria or occlusion. 2. No stenosis in the vertebral arteries in the neck. Labs Result diagrams: 06/20/21 15:35 06/20/21 15:35 Labs: Laboratory Results - last 24 hr 06/20/21 06/20/21 06/20/21 15:20 15:35 15:35 WBC 5.94 RBC 4.58 Hgb 15.4 Hct 45.7 MCV 99.8 H MCH 33.6 H MCHC 33.7 RDW 11.7 L Plt Count 164 MPV 9.3 Immature Gran % 0.3 Neutrophils % 71.3 Lymphocytes % 20.2 Monocytes % 7.4 Eosinophils % 0.5 Basophils % 0.3 Nucleated RBC % 0 Absolute Neutrophils 4.23 Absolute Lymphocytes 1.20 Absolute Monocytes 0.44 Absolute Eosinophils 0.03 Absolute Basophils 0.02 Sodium 144 Potassium 4.7 Chloride 105 Carbon Dioxide 28.1 Anion Gap 10.9 BUN 18 Creatinine 1.4 H Estimated GFR/1.73 m2 50.25 Glucose 87 Calcium 9.2 Magnesium 2.0 Total Bilirubin 1.2 H AST 29 ALT 24 Alkaline Phosphatase 94 Troponin I < 0.05 Total Protein 7.7 Albumin 4.1 Urine Color Yellow Urine Clarity Clear Urine pH 7.0 Ur Specific [place] 1.015 Urine Protein 30 H Urine Ketones Trace H Urine Blood Trace-intact H Urine Nitrite Negative Urine Bilirubin Negative Urine Urobilinogen 0.2 Ur Leukocyte Esterase Negative Urine RBC 3-5 H Urine WBC 0-2 Ur Epithelial Cells Negative Urine Crystals Negative Urine Bacteria Rare Urine Casts >50 Hyaline Urine Mucus Heavy Ur Culture Indicated? No Urine Glucose Negative COVID-19 Source SARS-CoV-2 (PCR) 06/20/21 18:20 WBC RBC Hgb Hct MCV MCH MCHC RDW Plt Count MPV Immature Gran % Neutrophils % Lymphocytes % Monocytes % Eosinophils % Basophils % Nucleated RBC % Absolute Neutrophils Absolute Lymphocytes Absolute Monocytes Absolute Eosinophils Absolute Basophils Sodium Potassium Chloride Carbon Dioxide Anion Gap BUN Creatinine Estimated GFR/1.73 m2 Glucose Calcium Magnesium Total Bilirubin AST ALT Alkaline Phosphatase Troponin I Total Protein Albumin Urine Color Urine Clarity Urine pH Ur Specific [place] Urine Protein Urine Ketones Urine Blood Urine Nitrite Urine Bilirubin Urine Urobilinogen Ur Leukocyte Esterase Urine RBC Urine WBC Ur Epithelial Cells Urine Crystals Urine Bacteria Urine Casts Urine Mucus Ur Culture Indicated? Urine Glucose COVID-19 Source Nasal/Nares SARS-CoV-2 (PCR) Negative Last Vital Signs Temp 36.6 C 06/20/21 19:14 Pulse 51 L 06/20/21 19:14 Resp 16 06/20/21 19:14 BP 178/81 H 06/20/21 19:14 Pulse Ox 100 06/20/21 19:14
[2021-06-20] MEDS: Enoxaparin 40 MG/0.4 ML SYR SC (20:47)
[2021-06-20] MEDS: Normal Saline Flush 10 ML SYR IVP (20:47)
[2021-06-20] MEDS: Lactated Ringers 1,000 ML 125 ML IV (20:48)
[2021-06-20 21:47] LABS: Troponin I < 0.05 ng/mL (<0.06)
[2021-06-20] MEDS: Magnesium Oxide 400 MG TAB 200 MG PO (22:15)
[2021-06-20] MEDS: Ketoconazole 2% CREAM 15 GM TUBE TP (22:48)
[2021-06-21 01:12] VITALS: PULSE 53
[2021-06-21 03:12] VITALS: BP 146/74; PULSE 48; RESP 16; TEMP 36.4; O2SAT 98
[2021-06-21] MEDS: Lactated Ringers 1,000 ML 125 ML IV ×2 (04:40→12:52)
[2021-06-21 07:00] VITALS: PULSE 38
[2021-06-21 07:03] LABS: Hemoglobin A1C 5.3 % (<5.7)
[2021-06-21 07:06] LABS: Iron 72 ug/dL (65-175); Total Iron Binding Capacity 225 ug/dL (250-450); Transferrin Sat 32 % (20-55)
[2021-06-21 07:16] LABS: Folate 19.9 ng/mL (8.6-20.0)
[2021-06-21 07:28] LABS: Anion Gap 6.5 mmol/L (3-11); BUN 15 mg/dL (7-18); CO2 28.5 mmol/L (21.0-32.0); Calcium 8.5 mg/dL (8.5-10.1); Calculated LDL 74 mg/dL (<100); Chloride 107 mmol/L (98-107); Cholesterol 140 mg/dL (<200); Ferritin 124 ng/mL (26-388); Glucose 96 mg/dL (74-106); HDL Cholesterol 57 mg/dL (40-60); Magnesium 2.1 mg/dL (1.8-2.4); Potassium 3.7 mmol/L (3.5-5.1); Sodium 142 mmol/L (136-145); TSH (W/Ref FT4) 2.17 uIU/mL (0.36-3.74); Triglyceride 49 mg/dL (<150); Troponin I < 0.05 ng/mL (<0.06); Vitamin B12 292 pg/mL (193-986)
[2021-06-21] MEDS: Aspirin E.C. 81 MG TABEC PO (08:28)
[2021-06-21] MEDS: Multivitamin TAB 1 TAB PO (08:28)
[2021-06-21] MEDS: Cholecalciferol (Vitamin D3) 1,000 UNIT TAB 1000 UNITS PO (08:28)
--- NOTE | 2021-06-21 09:44 | PDOC.CMIN ---
- If Service Date Differs Date of service: 06/21/21 Time of Service: 09:44 Care Management Initial Assess REASON FOR HOSPITALIZATION:: Transient Global Amnesia PAST MEDICAL HISTORY/PAST SURGICAL HISTORY:: 1st degree AV block. BPH (benign prostatic hyperplasia). GERD (gastroesophageal reflux disease). Ophthalmoplegic migraine. Raynauds syndrome. RBBB. Surgical History (Updated 06/20/21 @ 21:22 by Marce Epps MD). H/O esophagogastroduodenoscopy. History of hip replacement. H/o BIlateral hip replacements as well as revision of R total hip replacement PREVIOUS FUNCTIONAL STATUS/SOCIAL/FAMILY SUPPORTS:: Michel resides in [place] with his , Lashay. He is independent at baseline in the community; gainfully employed and physically active. CURRENT FUNCTIONAL STATUS:: Michel was lying in bed, on his laptop when CM met with him. He was forthcoming with information and reviewed the circumstances of his admission. He reported feeling hopeful he would be able to discharge home today, after work-up is completed. ADVANCE DIRECTIVES:: None on file at [facility]. Has patient been provided with info about the portal/API?: Yes Did the patient sign up for the portal?: No CODE STATUS:: Full Code INSURANCE COVERAGE / FINANCIAL ISSUES:: [employer] U IDs only. CURRENT HOME/COMMUNITY SERVICES/EQUIPMENT:: None, currently. PRIMARY CARE PHYSICIAN:: Jessica Longoria POTENTIAL DISCHARGE NEEDS:: Follow up appointments. PATIENT/FAMILY EDUCATION NEEDS:: Review discharge instructions, discuss Ask Me Three. ANTICIPATED BARRIERS TO DISCHARGE:: None identified at this time. TRANSPORTATION:: Via private vehicle with his . PLAN:: Michel will return home when ready per MD. He will follow up with his PCP and plan of care as prescribed. He will transport via private vehicle with his , Alice. CM continues to follow.
[2021-06-21 10:52] VITALS: BP 135/73; PULSE 42; RESP 12; TEMP 36.8; O2SAT 100
--- NOTE | 2021-06-21 13:55 | DI.MRI_ITS ---
Exam(s) MR BRAIN WO EXAM: MR BRAIN WO CLINICAL HISTORY: transient global amnesia TECHNIQUE: Multiplanar multisequence MRI of the brain was performed. COMPARISON: No exams were available for comparison FINDINGS: CEREBRAL PARENCHYMA: There is no evidence of intracranial hemorrhage, mass effect, or shift of midline structures. There are no extra-axial fluid collections. Ventricles are not enlarged or shifted. There is no significant focal signal abnormality in the cerebellar hemispheres nor within the bryson, m idbrain, and thalami. There is no abnormal signal abnormality in the periventricular white matter. There is a single small 2 millimeter focus of signal abnormality left periventricular white matter seen on FLAIR imaging, no t associated with surrounding nor surrounding edema nor abnormal imaging sequence signal at this leve l. This is a nonspecific finding. There is no significant focal signal abnormality evident on diffusion imaging to suggest acute ischem ic event. PITUITARY GLAND: No mass nor parasellar abnormality. No obvious abnormality in the cavernous sinuses. FLOW VOIDS: The expected flow void are noted. No evidence of obvious aneurysm nor obvious vascular ma lformation. PARANASAL SINUSES: The visualized paranasal sinuses appear unremarkable. No obvious finding ORBITS: No obvious findings. IMPRESSION: Single small nonspecific focus of signal abnormality in left periventricular white matter as describe d above. No evidence of intracranial hemorrhage or territorial infarction. The amount of involution al changes consistent with this patient's age. DATA REPOSITORY:
--- NOTE | 2021-06-21 14:38 | DI.US_ITS ---
APPROVED REPORT EXAM: Comprehensive 2D, Doppler, and color-flow Echocardiogram Patient Location: In-Patient Room/Bed: 230 Pharmacy Teacher: Vanessa Sommers RDCS (AE) Indications: Amnestic episode, Arrhythmia Other Information Study Quality: Adequate Conclusion Normal left ventricular wall thickness and chamber size. Estimated ejection fraction is 60 to 65%. Wall motion is normal Normal right ventricular size and systolic function Both atria are normal in size The aortic valve is mildly sclerotic and trileaflet with trace aortic regurgitation Normal mitral valve with trace regurgitation Normal tricuspid valve, mild regurgitation, normal estimated right ventricular systolic pressure Normal pulmonic valve with trace physiologic regurgitation Very mildly dilated ascending aorta measuring 3.63 cm Wall motion Left Ventricle The left ventricle is normal size. The left ventricular systolic function is normal. The left ventric ular ejection fraction is within the normal range. There is normal left ventricular wall thickness. T here is normal LV segmental wall motion. There is no ventricular septal defect visualized. LVEF is 60 -65%. Right Ventricle The right ventricle is normal size. The right ventricular systolic function is normal. The RVSP is 22 .6 mmHg. Atria The left atrium size is normal. The right atrium size is normal. The interatrial septum is intact wit h no evidence for an atrial septal defect. Aortic Valve The Aortic valve is mildly sclerotic. Aortic valve is trileaflet. There is no aortic valvular stenosi s. Trace aortic regurgitation. Mitral Valve The mitral valve is normal in structure. No evidence of mitral valve stenosis. Trace mitral regurgita tion. Tricuspid Valve The tricuspid valve is normal in structure. There is no tricuspid valve stenosis. Mild tricuspid regu rgitation. Pulmonic Valve The pulmonary valve is normal in structure. There is no pulmonic valvular stenosis. Trace pulmonic re gurgitation. Great Vessels The aortic root is normal in size. The ascending aorta is mildly dilated.3.63 cm Aortic arch is not w ell visualized. IVC is normal in size and collapses >50% with inspiration. Pericardium There is no pericardial effusion. 2D Dimensions IVSD d PLAX 1.10 cm M: 0.6-1.2 LV Vol A2C d MOD 127.1 mL LVPW d PLAX 1.11 cm M: 0.6 - 1.2 LV Vol A4C d MOD 143.6 mL LVID d PLAX 4.69 cm M: 4.2 - 5.8 LA vol/ BSA A4C s A-L 30.7 mL/m2 LVDs 3.20 cm M: 2.5 - 4.0 LA Area A4C s MOD 21.07 cm2 Ao Root d 3.32 cm M: 3.1 - 3.7 LV EF A4C MOD 59.6 % RA Area A4C 21.56 cm2 LV EF A2C MOD 64.4 % RA Vol/ BSA A4C s A-L 32.0 mL/m2 LV EF Biplane MOD 60.7 % Ao Asc Diam d 3.63 cm M: 2.6 - 3.4 SV 81.76 mL LV EF Teichholz 59.7 % SV Index 40.49 mL/m2 LVEF (Cornelius's) 60.75 % M: 52 - 72 LV Volume 100.61 mL M: 62 - 150 LV Volume Index 49.80 mL/m2 M: 34 - 74 LV Vol Biplane MOD 134.6 mL FS 31.65 % M-Mode TAPSE 2.81 cm (M/F) >1.7 LV Diastology MV E' medial 0.098 (>0.07 m/s) E/A Ratio 1.3 LV E/e MED 7.35 (<14) MV E Vmax 0.72 (0.4-1.3 m/s) MV E' lateral 0.114 (>0.1 m/s) MV A Vmax 0.55 (0.4-1.3 m/s) LV E/e LAT 6.30 (<14) MV E/A Ratio 1.31 MV E/E' medial 7.38 MV E/E' lateral 6.34 Aortic Valve LVOT Area 2.54 cm2 AoV Area Vmax 2.03 cm2 LVOT Vmax 0.98 m/s AoV Area/ BSA (Vmax) 1.01 cm2/m2 LVOT Mean Dev. 0.56 m/s RAMBO Mean Dev. 2.13 cm2 LVOT Peak Grad 3.8 mmHg RAMBO Mean Dev. Index 1.05 cm2/m2 LVOT Mean Grad 1.6 mmHg AR DT 2306 msec LVOT VTI 0.196 m AR PHT 669 msec LVOT Diam s 1.75 cm AoV Vmax 1.23 m/s Velocity Ratio 0.79 AoV Mean Dev. 0.67 m/s AoV Peak Grad 6.0 mmHg LVOT SV 49.86 mL AoV Mean Grad 2.3 mmHg AoV VTI 0.242 m AoV Area VTI 2.06 cm2 AoV Area/ BSA (VTI) 1.02 cm/m2 Mitral Valve MV DT 195 (160-240 msec) MV PHT 56 msec MV Area PHT 3.90 cm2 Pulmonary Valve PV Vmax 0.95 (0.5-1.5 m/s) RVOT Peak Gr. 2.30 mmHg PV Peak Grad 3.6 mmHg RVOT Mean Gr. 1.05 mmHg PV Mean Grad 2.0 mmHg RVOT VTI 0.169 m PV VTI 0.238 m RVOT Vmax 0.76 m/s Tricuspid Valve TR Peak Grad 19.6 mmHg TR Vmax 2.22 m/s RA Pressure 3.00 mmHg RVSP (TR) 22.6 mmHg
--- NOTE | 2021-06-21 14:51 | W.PM.DS.N ---
Date of service: 06/21/21 Time of Service: 14:51 DS: Diagnosis Discharge Diagnosis (1) Transient global amnesia: Status: Suspected (2) RBBB: Status: Acute (3) GABY (acute kidney injury): Status: Acute (4) Dehydration after exertion: Status: Acute (5) Macrocytosis: Status: Chronic (6) DVT prophylaxis: Status: Acute (7) Discharge planning issues: Status: Acute Discharge Plan Disposition Patient Disposition: HOME Condition: Good Discharge Details Reason For Visit: TRANSIENT GLOBAL AMNESIA Admit Date/Time: 06/20/21 18:15 Admit Provider: Marce Epps Attending Provider: Marce Epps Primary Care Provider: Jessica Longoria V Hospital Course Hospital Course: Mr Kilgore is a 71 year old male with 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 There was no trauma or injury during today's ride and there have been no recent falls. In the ED, the patient stated that he could not recall going on the bike ride at all today and only remembered parts of this morning. His workup in the ED has been essentially negative and included a CT/CTA head/neck, labs, COVID-19 PCR, nonischemic EKG, though it does show a RBBB and a negative torponin. Neurology consultation was sought via phone with [facility] [place]. While transient global amnesia appears most likely, an EEG was also recommended to r/o a seizure. The patient was recommended to be initiated on aspirin in case of a cardioembolic event. Of note, the patient has been in sinus bradycardia (his baseline) but has not had any evidence of arrhythmias on telemetry. The patient had a negative exercise EKG stress test in 2018 at [facility] [place]. Observation on hospitalist service was requested. Of note, the patient now recalls a lot more of the day, including this morning. The patient recalls some of the ride and denies feeling his usual pre-migraine aura, chest pain, palpitations, shortness of breath or nausea. He recalls only having a banana for breakfast, which is a lot less than he usually eats. He has felt better since eating. He has not been hypoglycemic here. Lab was unremarkable. CT head: . There is mild calcified plaque at the carotid bifurcations, slightly more so on the left side. However, there is no significant stenosis evident at these levels nor elsewhere in the neck. Both vertebral arteries are patent. 2. No evidence of intraluminal thrombosis nor aneurysm in the anterior intracranial circulation. 3. In the posterior intracranial circulation there is less than typically seen opacification of both superior cerebellar arteries, possibly significant. Posterior cerebral arteries are patent bilaterally. No evidence of significant atherosclerotic disease in the basilar artery. 4. No acute intracranial findings. No ring enhancing lesions in the brain and no abnormal meningeal enhancement. MRI: Single small nonspecific focus of signal abnormality in left periventricular white matter as described above. No evidence of intracranial hemorrhage or territorial infarction. The amount of involutional changes consistent with this patient's age. Echocardiogram performed; results pending. Follow up with PCP in 1-2 weeks. Home Meds and New Rx's Prescriptions: New aspirin 81 mg Tablet,Delayed Release (Dr/Ec) 81 mg PO DAILY Qty: 0 RF: 0 Continued famotidine 10 mg tablet 10 mg PO DAILY RF: 0 multivitamin [Daily Multi-Vitamin] Tablet 1 tab PO DAILY RF: 0 Gaviscon Extra Strength 254-237.5 mg/5 mL suspension 5 ml PO TID RF: 0 magnesium 200 MG tablet 200 mg PO HS RF: 0 cholecalciferol (vitamin D3) 1,000 UNITS tablet 1 tab PO DAILY RF: 0 Discharge Instructions Instructions: Transient Global Amnesia (GEN) Activity:: Activity as Tolerated Equipment/Supplies:: No Equipment Needed Diet:: Heart Healthy Discharge Orders Discharge Orders: Discharge Order (Routine); Ordered 06/21/21 Ordered By: Aidan Evans DS: Summary Time Spent with Patient providing and/or coordinating discharge services: Greater than 30 minutes Status at Discharge Functional status at discharge: independent ambulation Overall status at discharge: patient is back to baseline Mental Status: mental status grossly normal Speech and Movement: speech and movement normal Mood: congruent mood Affect: normal affect Exam Narrative Exam Narrative: General: middle-aged male, A&Ox3, remembers what was told to him in the ED and has a good understanding of his current clinical situation Neurological: A&Ox3, no focal deficits. CN II - XII intact, 5/5 strength in all extremities Psychiatric: Appropriate speech pattern, content. Affect appropriate. Skin: Visible skin intact HEENT: Atraumatic, normocephalic, EOMI, dry MM, clear oropharynx, no submandibular or cervical lymphadenopathy, no goiter or JVD Cardiovascular: RRR, bradycardic, no m/r/g Lungs: CTAB Gastrointestinal: soft,nontender,nondistneded Extremities: no edema/clubbing/cyanosis, +1 pedal pulses B, afua pedis and cutis. Psych Mental Status: mental status grossly normal Speech and Movement: speech and movement normal Mood: congruent mood Affect: normal affect DS: Data Vitals/I&O Vitals and I&O: Vital Signs Temperature 36.8 C 06/21/21 10:52 Temperature Source Tympanic 06/21/21 10:52 Pulse 42 L 06/21/21 10:52 Pulse Rhythm Regular 06/21/21 09:17 Pulse 52 L 06/20/21 18:40 Respiratory Rate 12 06/21/21 10:52 Respiratory Effort Non-Labored 06/21/21 09:17 Respiratory Depth Normal 06/21/21 09:17 Respiratory Pattern Normal 06/21/21 09:17 Blood Pressure 135/73 06/21/21 10:52 Blood Pressure Mean 84 06/20/21 18:31 Blood Pressure Position Sitting 06/20/21 15:06 Pulse Oximetry 100 06/21/21 10:52 Oxygen Delivery Method Room Air 06/21/21 10:52 Oxygen Flow Rate 0 06/21/21 10:52 Pain Level 0 06/21/21 10:52 Intake & Output 06/20/21 06/21/21 06/21/21 23:59 11:59 23:59 Intake Total 983.333 / 999 / Output Total 800 / 800 1675 / 2375 700 / 2375 Balance -800 / -800 -691.667 / -391.667 300 / -391.667 Weight 83.915 kg 84.085 kg Intake: IV 983.333 / 1907.335 1879 / Output: Urine 800 / 800 1675 / 2375 700 / 2375 Other: Urine Color Pale Yellow Yellow Yellow Urine Appearance Clear Clear Clear Urine Odor Normal Normal Comment Void amount under bladder scan section. Voiding Methods Urinal Urinal Data Completed and Pending Labs on day of discharge: Labs from last 24 hours 06/21/21 06/21/21 06/21/21 06:15 06:15 06:15 WBC RBC Hgb Hct MCV MCH MCHC RDW Plt Count MPV Immature Gran % Neutrophils % Lymphocytes % Monocytes % Eosinophils % Basophils % Nucleated RBC % Absolute Neutrophils Absolute Lymphocytes Absolute Monocytes Absolute Eosinophils Absolute Basophils Sodium Potassium Chloride Carbon Dioxide Anion Gap BUN Creatinine Estimated GFR/1.73 m2 Glucose Hemoglobin A1c 5.3 Calcium Magnesium Iron 72 TIBC 225 L Transferrin % Sat 32 Ferritin Total Bilirubin AST ALT Alkaline Phosphatase Troponin I Total Protein Albumin Triglycerides Total Cholesterol LDL Cholesterol, Calc HDL Cholesterol Vitamin B12 Folate 19.9 TSH Urine Color Urine Clarity Urine pH Ur Specific Towner Urine Protein Urine Ketones Urine Blood Urine Nitrite Urine Bilirubin Urine Urobilinogen Ur Leukocyte Esterase Urine RBC Urine WBC Ur Epithelial Cells Urine Crystals Urine Bacteria Urine Casts Urine Mucus Ur Culture Indicated? Urine Glucose COVID-19 Source SARS-CoV-2 (PCR) 06/21/21 06/20/21 06/20/21 06:15 21:11 18:20 WBC RBC Hgb Hct MCV MCH MCHC RDW Plt Count MPV Immature Gran % Neutrophils % Lymphocytes % Monocytes % Eosinophils % Basophils % Nucleated RBC % Absolute Neutrophils Absolute Lymphocytes Absolute Monocytes Absolute Eosinophils Absolute Basophils Sodium 142 Potassium 3.7 D Chloride 107 Carbon Dioxide 28.5 Anion Gap 6.5 BUN 15 Creatinine 1.0 Estimated GFR/1.73 m2 >= 60.00 Glucose 96 Hemoglobin A1c Calcium 8.5 Magnesium 2.1 Iron TIBC Transferrin % Sat Ferritin 124 Total Bilirubin AST ALT Alkaline Phosphatase Troponin I < 0.05 < 0.05 Total Protein Albumin Triglycerides 49 Total Cholesterol 140 LDL Cholesterol, Calc 74 HDL Cholesterol 57 Vitamin B12 292 Folate TSH 2.17 Urine Color Urine Clarity Urine pH Ur Specific Towner Urine Protein Urine Ketones Urine Blood Urine Nitrite Urine Bilirubin Urine Urobilinogen Ur Leukocyte Esterase Urine RBC Urine WBC Ur Epithelial Cells Urine Crystals Urine Bacteria Urine Casts Urine Mucus Ur Culture Indicated? Urine Glucose COVID-19 Source Nasal/Nares SARS-CoV-2 (PCR) Negative 06/20/21 06/20/21 06/20/21 15:35 15:35 15:20 WBC 5.94 RBC 4.58 Hgb 15.4 Hct 45.7 MCV 99.8 H MCH 33.6 H MCHC 33.7 RDW 11.7 L Plt Count 164 MPV 9.3 Immature Gran % 0.3 Neutrophils % 71.3 Lymphocytes % 20.2 Monocytes % 7.4 Eosinophils % 0.5 Basophils % 0.3 Nucleated RBC % 0 Absolute Neutrophils 4.23 Absolute Lymphocytes 1.20 Absolute Monocytes 0.44 Absolute Eosinophils 0.03 Absolute Basophils 0.02 Sodium 144 Potassium 4.7 Chloride 105 Carbon Dioxide 28.1 Anion Gap 10.9 BUN 18 Creatinine 1.4 H Estimated GFR/1.73 m2 50.25 Glucose 87 Hemoglobin A1c Calcium 9.2 Magnesium 2.0 Iron TIBC Transferrin % Sat Ferritin Total Bilirubin 1.2 H AST 29 ALT 24 Alkaline Phosphatase 94 Troponin I < 0.05 Total Protein 7.7 Albumin 4.1 Triglycerides Total Cholesterol LDL Cholesterol, Calc HDL Cholesterol Vitamin B12 Folate TSH Urine Color Yellow Urine Clarity Clear Urine pH 7.0 Ur Specific Towner 1.015 Urine Protein 30 H Urine Ketones Trace H Urine Blood Trace-intact H Urine Nitrite Negative Urine Bilirubin Negative Urine Urobilinogen 0.2 Ur Leukocyte Esterase Negative Urine RBC 3-5 H Urine WBC 0-2 Ur Epithelial Cells Negative Urine Crystals Negative Urine Bacteria Rare Urine Casts >50 Hyaline Urine Mucus Heavy Ur Culture Indicated? No Urine Glucose Negative COVID-19 Source SARS-CoV-2 (PCR) PFSH Medical History 1st degree AV block BPH (benign prostatic hyperplasia) GERD (gastroesophageal reflux disease) Ophthalmoplegic migraine Raynauds syndrome RBBB Surgical History H/O esophagogastroduodenoscopy History of hip replacement H/o BIlateral hip replacements as well as revision of R total hip replacement Family History Father Heart disease Cancer lung cancer (smoker) Mother Cancer leiomyosarcoma Maternal Uncle Cancer leiomyosarcoma Paternal Grandfather Cancer brain tumor Brother Cancer stomach malignancy, unsure of cell type Social History Smoking/Tobacco Use Status: Never Smoking risk assessment performed?: Yes Alcohol Intake: current Alcohol Intake frequency: holidays/special occasions only Drug use: Never Substance use type: does not use Current gender identity: male
[2021-06-21 15:28] VITALS: PULSE 48
== END 2021-06-21 16:24 | disposition home or self-care (01) ==
LOC: ER 18:38 → MS 19:06
PROVIDERS: Admitting Provider Internal Medicine; Emergency Provider Physician Assistant; PCP Family Medicine; Visit Provider Internal Medicine
DX: G45.4 Transient global amnesia (principal); I45.10 Unspecified right bundle-branch block; N17.9 Acute kidney failure, unspecified; E86.0 Dehydration; Z20.822 Contact with and (suspected) exposure to COVID-19; D75.89 Other specified diseases of blood and blood-forming organs; G43.B0 Ophthalmoplegic migraine, not intractable; I44.0 Atrioventricular block, first degree; K21.9 Gastro-esophageal reflux disease without esophagitis; N40.0 Benign prostatic hyperplasia without lower urinary tract symptoms; I73.00 Raynaud's syndrome without gangrene; Z79.899 Other long term (current) drug therapy
CPT/HCPCS: 36415; 70496; 70498; 80048; 80053; 80061; 87635; 93005; J1650; 70551; 71046; 81003; 81015; 82607; 82728; 82746; 83036; 83540; 83550; 83735; 84443; 84484; 85025; 93010; 93306; 99217; 99220; G0378; J3490

== ENCOUNTER 2022-01-18 10:25 | Emergency (ER) | payer OTHER, SELFPAY ==
[2022-01-18] VITALS (34 sets, daily range): BP systolic 130–169; BP diastolic 76–96; PULSE 47–103; RESP 8–23; TEMP 36.8; O2SAT 90–100
--- NOTE | 2022-01-18 10:30 | RT.EKG_ITS ---
APPROVED REPORT Exam: Resting ECG Reason for Exam: hypertension Patient Location: E HR:52 bpm ECG Measurements Heart Rate 52 AXIS IA 262 P 64 QRSd 129 QRS -42 QT 443 T 25 QTc 398 Conclusion Sinus bradycardia...rate< 60 Atrial premature complexes in couplets...pair SV complexes w/ short R-R Prolonged IA interval...IA >220, V-rate 50- 90 Right bundle branch block...QRSd>120, terminal axis(90,270) Inferior infarct, old...Q >35mS, II III aVF sinus viviana, PAC, RBBB
--- NOTE | 2022-01-18 10:45 | DI.RAD_ITS ---
Exam(s) XR PORTABLE CHEST AP EXAM: XR PORTABLE CHEST AP CLINICAL HISTORY: presyncope, tachycardia TECHNIQUE: 2D digital imaging was performed. COMPARISON: No exams were available for comparison FINDINGS: LUNGS: Clear. No pleural abnormality seen. HEART: Normal. MEDIASTINUM: Normal. BONES: Unremarkable. IMPRESSION: No acute pulmonary findings. DATA REPOSITORY: RADIATION DOSE DELIVERED:
[2022-01-18 11:00] LABS: Abs Immature Grans 0.02 10^3/uL (0.0-0.06); Absolute Basophil Count 0.03 10^3/uL (0.0-0.2); Absolute Eosinophil Count 0.08 10^3/uL (0.0-0.7); Absolute Lymphocyte Count 1.59 10^3/uL (1.2-3.4); Absolute Monocyte Count 0.45 10^3/uL (0.1-0.8); Absolute Neutrophil Count 2.96 10^3/uL (1.2-6.7); Basophils % 0.6; Eosinophils % 1.6; HCT 44.3 % (40.0-50.0); HGB 15.1 g/dL (13.5-17.5); Immature Grans % 0.4; MCH 34.1 pg (27.0-33.0); MCHC 34.1 % (32.0-36.0); MPV 9.5 fL (8.0-11.0); Monocytes % 8.8; Neutrophils % 57.6; Nucleated RBC 0 %; Platelet Count 157 10^3/uL (130-400); RBC 4.43 10^6/uL (4.36-5.78); RDW 11.3 % (11.8-14.1); WBC 5.13 10^3/uL (4.4-10.8)
[2022-01-18] MEDS: Aspirin 325 MG TAB PO (11:03)
[2022-01-18] MEDS: Normal Saline 500 ML 1000 ML IV (11:03)
--- NOTE | 2022-01-18 11:04 | ED.GENADUL_ITS ---
Discharge Plan Disposition Patient Disposition: HOME Condition: Improving Discharge Details Chief Complaint: GenMedical Clinical Impression: Elevated TSH, Pre-syncope Primary Care Provider: Jessica Longoria V ED Provider: Aidan Hadley Home Meds and New Rx's Prescriptions: No Action famotidine 10 mg tablet 20 mg PO DAILY PRN0RF multivitamin [Daily Multi-Vitamin] Tablet 1 tab PO DAILY 0RF Gaviscon Extra Strength 254-237.5 mg/5 mL suspension 5 ml PO TID 0RF magnesium 200 MG tablet 200 mg PO HS 0RF cholecalciferol (vitamin D3) 1,000 UNITS tablet 1 tab PO DAILY 0RF Discharge Instructions Instructions: Near Syncope (ED) Additional Instructions: Please follow-up with your primary care physician regarding her elevated TSH level as well as your symptoms of sleep apnea. Return to the emergency depart ment for any worsening symptomatology. Medical Decision Making 71-year-old male history of ocular migraines, past transient global amnesia, known right bundle branch block no bradycardia presents with lightheadedness in the setting of exercising this morning, endorse that he does not eat this morning before his workout, slight drying of oral mucosa, sinus tachycardia monitor however slightly irregular bradycardia on palpation, EKG showing sinus bradycardia with premature atrial complexes and first-degree AV block, patient moderately hypertensive 170s systolic, no chest pain no shortness of breath no hypoxia, consider symptomatic PACs versus electrolyte abnormality versus hypoglycemia versus dehydration versus ACS versus less likely PE versus unlikely aortic pathology or pneumonia, lower suspicion for neurologic process given normal neurologic examination. Screening labs chest x-ray fluids aspirin close reassessment of symptoms after fluids and rest. If labs and imaging are normal consider home with close follow-up Resting comfortably no acute distress feeling much better after rest and fluids. Known right bundle branch block and degree of first-degree AV block and sinus bradycardia. No chest pain, negative troponin. Evidence of elevated TSH with normal T4. TSH greatly elevated compared to prior from 2020. Patient counseled to follow with his primary care physician. Blood pressure 130/80. Home care instructions and return precautions given. HPI General Date/Time Provider Initiated Documentation: 01/18/22 10:40 . HPI Narrative: 71-year-old male history of ocular migraine, transient global amnesia, known right bundle branch block and bradycardia presents with lightheadedness change in coloration and hypertension in the setting of working out to the light cardio workout this morning, was noted by pre billing clinician to be ashen in color, patient denies any chest pain or shortness of breath; denies any cardiac history or thromboembolic history. Endorses that he did not eat this morning. Related Data Home Medications Medication Instructions Recorded Confirmed cholecalciferol (vitamin D3) 25 1 tab PO DAILY 07/22/15 01/18/22 mcg (1,000 unit) tablet magnesium 200 mg tablet 200 mg PO HS 07/22/15 01/18/22 aluminum hydrox-magnesium carb 254 5 ml PO TID 10/29/20 01/18/22 mg-237.5 mg/5 mL oral suspension (Gaviscon Extra Strength) multivitamin (Daily Multi-Vitamin) 1 tab PO DAILY 10/29/20 01/18/22 famotidine 10 mg tablet 20 mg PO DAILY PRN tab 07/01/21 01/18/22 Allergies Allergy/AdvReac Type Severity Reaction Status Date / Time hayfever Allergy Uncoded 01/18/22 10:43 General Stated Complaint: GenMedical VINOD: 3 Review of Systems Narrative: Review of Systems Constitutional: Lightheaded Eyes: negative ENT: negative Cardiovascular: Hypertension Respiratory: negative Gastrointestinal: negative : negative Musculoskeletal: negative Skin: negative Neurologic: negative Psych: negative PFSH All Active Problems (Updated 01/18/22 @ 13:31 by Aidan Hadley MD) Elevated TSH (Acute) Pre-syncope (Acute) Ocular migraine (Acute) RBBB (Acute) Discharge planning issues (Acute) DVT prophylaxis (Acute) Macrocytosis (Chronic) Dehydration after exertion (Acute) GABY (acute kidney injury) (Acute) Amnesia (Acute) Confusion (Acute) Hamstring tendinitis of right thigh (Acute) Tendinitis involving right hip abductors (Acute) Medical History 1st degree AV block BPH (benign prostatic hyperplasia) GERD (gastroesophageal reflux disease) Ocular migraine Ophthalmoplegic migraine Raynauds syndrome RBBB Surgical History H/O esophagogastroduodenoscopy History of hip replacement H/o BIlateral hip replacements as well as revision of R total hip replacement S/P tonsillectomy Family History Father Heart disease Cancer lung cancer (smoker) Mother Cancer leiomyosarcoma Maternal Uncle Cancer leiomyosarcoma Paternal Grandfather Cancer brain tumor Brother Cancer stomach malignancy, unsure of cell type Social History Smoking/Tobacco Use Status: Never Smoking risk assessment performed?: Yes Alcohol Intake: current Alcohol Intake frequency: holidays/special occasions only Drug use: Never Substance use type: does not use Household members: spouse Number of Children: 0 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 Current gender identity: male Do you feel safe at home: Yes Exam Narrative Exam Narrative: Physical Examination General: alert, awake, cooperative, resting comfortably, no acute distress HEENT: normocephalic, atraumatic; PERRL, EOM intact, conjunctiva normal; no nasal discharge; slight drying of oral mucosa; Neck: supple, trachea midline; full ROM Chest: normal to inspection Respiratory: normal respiratory effort, speaking in full sentences, clear to auscultation, no wheezing, rales or rhonchi Cardiac: Although monitor showing sinus tachycardia, palpable pulse is slightly irregular and bradycardic S1S2 intact, no murmurs rubs or gallops GI: abdomen soft, non-tender, non-distended; no palpable mass or hepatosplenomegaly Skin: no lesions, rashes or trauma appreciated Neuro: AAOx3, normal speech, moving all extremities; cranial nerves intact Extremities: No peripheral edema Psych: Appropriate mood and affect Course Vital Signs Vital signs: Vital Signs Temperature 36.8 C 01/18/22 10:31 Pulse 51 L 01/18/22 10:31 Respiratory Rate 16 01/18/22 10:31 Blood Pressure 169/76 H 01/18/22 10:31 Pulse Oximetry 100 01/18/22 10:31 Temperature 36.8 C 01/18/22 10:31 Temperature Source Temporal Artery Scan 01/18/22 10:31 Pulse 51 L 01/18/22 10:31 Respiratory Rate 20 01/18/22 10:35 Respiratory Effort Non-Labored 01/18/22 10:35 Respiratory Depth Normal 01/18/22 10:35 Respiratory Pattern Normal 01/18/22 10:35 Blood Pressure 169/76 H 01/18/22 10:31 Blood Pressure Position Sitting 01/18/22 10:31 Pulse Oximetry 100 01/18/22 10:31 Oxygen Delivery Method Room Air 01/18/22 10:31 Oxygen Flow Rate 0 01/18/22 10:31 Pain Level 0 01/18/22 10:31 Lab/Test Results Lab/Test Results: Laboratory Tests Range/Units 01/18/22 10:44 WBC (4.4-10.8) 10^3/uL 5.13 RBC (4.36-5.78) 10^6/uL 4.43 Hgb (13.5-17.5) g/dL 15.1 Hct (40.0-50.0) % 44.3 MCV (80-95) fL 100.0 H MCH (27.0-33.0) pg 34.1 H MCHC (32.0-36.0) % 34.1 RDW (11.8-14.1) % 11.3 L Plt Count (130-400) 10^3/uL 157 MPV (8.0-11.0) fL 9.5 Immature Gran % 0.4 Neutrophils % 57.6 Lymphocytes % 31.0 Monocytes % 8.8 Eosinophils % 1.6 Basophils % 0.6 Nucleated RBC % % 0 Absolute Neutrophils (1.2-6.7) 10^3/uL 2.96 Absolute Lymphocytes (1.2-3.4) 10^3/uL 1.59 Absolute Monocytes (0.1-0.8) 10^3/uL 0.45 Absolute Eosinophils (0.0-0.7) 10^3/uL 0.08 Absolute Basophils (0.0-0.2) 10^3/uL 0.03 PAWSS Have you Been Recently Intoxicated or Drunk Within the Last 30 days?: No Have you Ever Experienced Previous Episodes of Alcohol Withdrawal?: No Have you ever Experienced Withdrawal Seizures?: No Have you ever Experienced Delirium Tremens(DT)s?: No Have you ever undergone Alcohol Rehabilitation Treatment (i.e, inpt ot outpatient treatment programs)?: No Have you ever Experienced Blackouts?: No Have you ever Combined Alcohol with other Downers within the last 90 days?: No Have you ever Combined Alcohol with any other Substance of Abuse during the last 90 days?: No Result: 0
[2022-01-18 11:21] LABS: Bilirubin Negative (Negative); Blood Trace-intact (Negative); Clarity Clear (Clear); Glucose Negative (Negative); Ketones Negative (Negative); Leukocyte Esterase Negative (Negative); Nitrite Negative (Negative); Specific Gravity 1.025 (1.005-1.025); Urobilinogen 0.2 EU/dL (Up TO 0.2)
[2022-01-18 11:27] LABS: Prothrombin Time 10.2 sec (9.3-11.0)
[2022-01-18 11:28] LABS: Bacteria Negative HPF (Negative); C & S Indicated? No; Casts Negative LPF (Negative); Crystals Negative HPF (Negative); Epithelial Cells Rare HPF (Negative); Mucus Negative (Negative); RBC 0-2 HPF (0-2); WBC Negative HPF (0-5)
[2022-01-18 11:30] LABS: ALT 30 U/L (16-63); AST 28 U/L (15-37); Albumin 3.9 g/dL (3.4-5.0); Alkaline Phosphatase 91 U/L (46-116); Anion Gap 7.2 mmol/L (3-11); BUN 19 mg/dL (7-18); Bilirubin, Total 0.8 mg/dL (0.2-1.0); CO2 26.8 mmol/L (21.0-32.0); CREATININE 1.2 mg/dL (0.70-1.30); Chloride 103 mmol/L (98-107); Glucose 142 mg/dL (74-106); Magnesium 2.1 mg/dL (1.8-2.4); NT-proBNP 214 pg/mL (<300); Potassium 3.7 mmol/L (3.5-5.1); Sodium 137 mmol/L (136-145); TSH (W/Ref FT4) 6.49 uIU/mL (0.36-3.74); Total Protein 7.4 g/dL (6.4-8.2); Troponin I < 50 ng/L (<or=60)
[2022-01-18 11:48] LABS: FREE T4 0.92 ng/dL (0.76-1.46)
[2022-01-19 12:03] LABS: COVID-19 RT-PCR UVMMC Result Negative (Negative)
== END 2022-01-18 13:54 | disposition home or self-care (01) ==
PROVIDERS: Emergency Provider Emergency Medicine; PCP Family Medicine
DX: R55 Syncope and collapse (principal); R94.6 Abnormal results of thyroid function studies; R00.0 Tachycardia, unspecified; I10 Essential (primary) hypertension; R00.1 Bradycardia, unspecified; Z20.822 Contact with and (suspected) exposure to COVID-19
CPT/HCPCS: 36415; 36416; 80053; 82962; 87635; 93005; 96360; 99284; U0003; 71045; 81003; 81015; 83735; 83880; 84439; 84443; 84484; 85025; 85610; 85730; 93010

== ENCOUNTER 2022-02-07 18:21 | Outpatient (REF) | payer OTHER, SELFPAY ==
[2022-02-07 14:12] LABS: Hemoglobin A1C 5.4 % (<5.7)
[2022-02-07 14:58] LABS: Calculated LDL 100 mg/dL (<100); Cholesterol 180 mg/dL (<200); HDL Cholesterol 69 mg/dL (40-60); T4 5.7 ug/mL (4.7-13.3); TSH 4.13 uIU/mL (0.36-3.74); Triglyceride 56 mg/dL (<150)
[2022-02-07 15:49] LABS: Vitamin B12 439 pg/mL (193-986)
[2022-02-07 22:27] LABS: T3, Total 128 ng/dL (97-169)
== END 2022-02-07 18:22 | disposition home or self-care (01) ==
LOC: NCHCN 18:21
PROVIDERS: PCP Family Medicine; Visit Provider Nurse Practitioner Family
DX: R55 Syncope and collapse (principal); R94.6 Abnormal results of thyroid function studies
CPT/HCPCS: 80061; 82607; 83036; 84436; 84443; 84480

== ENCOUNTER 2022-02-09 08:51 | Outpatient (CLI) | payer OTHER, SELFPAY ==
--- NOTE | 2022-03-10 09:19 | W.CARDEVENT ---
Date of service: 03/10/22 Time of Service: 08:19 Cardiac Event Recorder Referring Provider:: Orin Duke Indications:: Near syncope Cardiac Event Note: This is a 14-day home economist consumer service reportedly ordered for syncope Predominant rhythm was sinus with an average heart rate of 50. Minimum was 35, maximum 124. First-degree AV block was present at baseline There were rare ventricular ectopic beats There were moderately frequent atrial premature beats. There was no atrial fibrillation. There were multiple self-limited atrial runs, the longest of which was 11 beats in duration. These were not symptomatic There were several brief asymptomatic episodes consistent with Mobitz 1 second-degree AV block (Wenkebach). There was no high-grade AV block, no pauses greater than 3 seconds Patient symptoms were reported which corresponded to atrial premature beats
== END 2022-02-09 08:52 | disposition home or self-care (01) ==
LOC: RT 08:52
PROVIDERS: PCP Family Medicine; Visit Provider Nurse Practitioner Family
DX: R55 Syncope and collapse (principal)
CPT/HCPCS: 93246

== ENCOUNTER 2022-03-02 16:04 | Outpatient (REF) | payer OTHER, SELFPAY ==
[2022-03-02 16:51] LABS: TSH (W/Ref FT4) 5.14 uIU/mL (0.36-3.74)
== END 2022-03-02 16:05 | disposition home or self-care (01) ==
LOC: NCHCN 16:04
PROVIDERS: PCP Family Medicine; Visit Provider Family Medicine
DX: R94.6 Abnormal results of thyroid function studies (principal)
CPT/HCPCS: 84439; 84443

== ENCOUNTER 2022-03-25 09:55 | Outpatient (CLI) | payer OTHER, SELFPAY ==
--- NOTE | 2022-03-25 09:45 | DI.RAD_ITS ---
Exam(s) XR KNEE RT 3V AP,LAT,ANDRESSA EXAM: XR KNEE RT 3V AP,LAT,ANDRESSA CLINICAL HISTORY: right knee pain. TECHNIQUE: 2D digital imaging was performed. Three views. COMPARISON: CR XR KNEE LT 3V AP,LAT,ANDRESSA from 03/25/2022 FINDINGS: BONES: No acute fracture is present. No bony destructive lesion is seen. Bipartite patella. JOINTS: Mild to moderate narrowing the medial femoral tibial joint. Chondrocalcinosis. The knee is normally aligned. No joint effusion is seen. SOFT TISSUE: Normal. IMPRESSION: Moderate degenerative changes medial femoral tibial joint. DATA REPOSITORY: RADIATION DOSE DELIVERED:
--- NOTE | 2022-03-25 09:45 | DI.RAD_ITS ---
Exam(s) XR KNEE LT 3V AP,LAT,ANDRESSA EXAM: XR KNEE LT 3V AP,LAT,ANDRESSA CLINICAL HISTORY: left knee pain. TECHNIQUE: 2D digital imaging was performed. Three views. COMPARISON: No exams were available for comparison FINDINGS: BONES: Bipartite patella. No acute fracture is present. No bony destructive lesion is seen. Spurring at tibial tubercle. JOINTS: Mild narrowing medial femoral tibial joint. Chondrocalcinosis. The knee is normally aligned . No joint effusion is seen. SOFT TISSUE: Normal. IMPRESSION: Mild degenerative changes medial femoral tibial joint and chondrocalcinosis DATA REPOSITORY: RADIATION DOSE DELIVERED:
== END 2022-03-25 09:56 | disposition home or self-care (01) ==
LOC: DIORS 09:55
PROVIDERS: PCP Family Medicine; Referring Provider Family Medicine; Visit Provider Physician Assistant
DX: M25.561 Pain in right knee (principal); M25.562 Pain in left knee; M17.0 Bilateral primary osteoarthritis of knee
CPT/HCPCS: 73562

== ENCOUNTER 2022-04-27 14:53 | Outpatient (REF) | payer OTHER, SELFPAY ==
[2022-04-27 17:26] LABS: FREE T4 1.03 ng/dL (0.76-1.46); TSH 4.13 uIU/mL (0.36-3.74)
[2022-04-27 17:41] LABS: Calculated LDL 81 mg/dL (<100); Cholesterol 158 mg/dL (<200); HDL Cholesterol 66 mg/dL (40-60); Triglyceride 55 mg/dL (<150)
== END 2022-04-27 14:54 | disposition home or self-care (01) ==
LOC: NCHCN 14:53
PROVIDERS: PCP Family Medicine; Visit Provider Family Medicine
DX: R94.6 Abnormal results of thyroid function studies (principal); Z00.00 Encounter for general adult medical examination without abnormal findings; Z13.220 Encounter for screening for lipoid disorders
CPT/HCPCS: 80061; 84439; 84443

== ENCOUNTER 2022-08-10 19:54 | Outpatient (REF) | payer OTHER, SELFPAY ==
[2022-08-10 15:11] LABS: FREE T4 1.15 ng/dL (0.76-1.46); TSH 2.66 uIU/mL (0.36-3.74)
== END 2022-08-10 19:55 | disposition home or self-care (01) ==
LOC: NCHCN 19:54
PROVIDERS: PCP Family Medicine; Visit Provider Family Medicine
DX: E03.9 Hypothyroidism, unspecified (principal); R94.5 Abnormal results of liver function studies; Z00.00 Encounter for general adult medical examination without abnormal findings
CPT/HCPCS: 84439; 84443

== ENCOUNTER 2022-11-11 13:16 | Outpatient (REF) | payer OTHER, SELFPAY ==
[2022-11-13 10:57] LABS: COVID-19 RT-PCR UVMMC Result Negative (Negative)
== END 2022-11-11 13:17 | disposition home or self-care (01) ==
LOC: NCHCN 13:16
PROVIDERS: PCP Family Medicine; Visit Provider Family Medicine
DX: Z20.822 Contact with and (suspected) exposure to COVID-19 (principal)
CPT/HCPCS: U0003

== ENCOUNTER 2023-01-13 12:03 | Outpatient (REF) | payer OTHER, SELFPAY ==
[2023-01-13 16:59] LABS: HCT 40.6 % (40.0-50.0); HGB 14.2 g/dL (13.5-17.5); MCH 34.9 pg (27.0-33.0); MCV 100 fL (80-95); MPV 11.2 fL (8.0-11.0); Platelet Count 160 10^3/uL (130-400); RBC 4.07 10^6/uL (4.36-5.78); RDW 12.1 % (11.8-14.1); RDW-SD 44.1 fL; WBC 4.03 10^3/uL (4.4-10.8)
[2023-01-13 18:44] LABS: Anion Gap 5.3 mmol/L (3-11); BUN 22 mg/dL (7-18); CO2 25.7 mmol/L (21.0-32.0); CREATININE 0.9 mg/dL (0.70-1.30); Calcium 8.7 mg/dL (8.5-10.1); Chloride 105 mmol/L (98-107); Estimated GFR 91.88 (mL/min/1.73m2); FREE T4 1.05 ng/dL (0.76-1.46); Glucose 106 mg/dL (74-106); Sodium 136 mmol/L (136-145); TSH 2.01 uIU/mL (0.36-3.74)
[2023-01-13 19:21] LABS: Vitamin B12 450 pg/mL (193-986)
[2023-01-15 16:43] LABS: CRP, High Sensitivity 0.45 mg/L (See Note)
[2023-01-17 10:33] LABS: Apolipoprotein B, S 78 mg/dL
== END 2023-01-13 12:04 | disposition home or self-care (01) ==
LOC: NCHCN 12:03
PROVIDERS: PCP Family Medicine; Visit Provider Family Medicine
DX: E03.9 Hypothyroidism, unspecified (principal); R94.6 Abnormal results of thyroid function studies; E53.8 Deficiency of other specified B group vitamins; M25.561 Pain in right knee; M25.551 Pain in right hip; M25.511 Pain in right shoulder; M25.562 Pain in left knee; M54.59 Other low back pain; D50.9 Iron deficiency anemia, unspecified; Z87.448 Personal history of other diseases of urinary system; Z00.00 Encounter for general adult medical examination without abnormal findings
CPT/HCPCS: 80048; 82172; 85027; 86141; 82607; 84439; 84443

== ENCOUNTER 2023-01-26 01:22 | Outpatient (CLI) | payer OTHER, SELFPAY ==
--- NOTE | 2023-01-26 | DI.RAD_ITS ---
Exam(s) XR LUMBAR SPINE COMPLETE EXAM: XR LUMBAR SPINE COMPLETE CLINICAL HISTORY: LUMBAR BACK PAIN M54.50. TECHNIQUE: 2D digital imaging was performed. Five views. COMPARISON: No exams were available for comparison FINDINGS: BONES: No fracture or destructive lesion. Vertebral body heights are maintained. Endplate osteophyte s noted throughout, greatest on the right side at L2-3. facet hypertrophy identified greatest at L4 -5 and L5-S1. DISKS: Moderate narrowing of the L 2 3 and L3-4 disc spaces. Severe narrowing of the L5-S1 disc spac e. Mild narrowing of the L1-2 and L4-5 disc spaces. ALIGNMENT: Mild dextroscoliosis. Mild spondylolisthesis L4-5 secondary to facet degenerative changes SOFT TISSUE: Normal. IMPRESSION: Degenerative disc changes and facet degenerative changes. DATA REPOSITORY: RADIATION DOSE DELIVERED:
== END 2023-01-26 01:42 ==
LOC: DI 01:23
PROVIDERS: PCP Family Medicine; Visit Provider Family Medicine
DX: M54.59 Other low back pain (principal); M51.37 Other intervertebral disc degeneration, lumbosacral region; M47.817 Spondylosis without myelopathy or radiculopathy, lumbosacral region; M43.16 Spondylolisthesis, lumbar region
CPT/HCPCS: 72110

== ENCOUNTER 2023-04-17 10:17 | Outpatient (REF) | payer OTHER, SELFPAY ==
[2023-04-18 19:16] LABS: PSA, Screening 0.6 ng/mL (<=6.5)
[2023-04-27 15:33] LABS: Misc Referral (MAYO) See Comments
== END 2023-04-17 10:18 | disposition home or self-care (01) ==
LOC: NCHCN 10:17
PROVIDERS: PCP Family Medicine; Visit Provider Family Medicine
DX: Z00.00 Encounter for general adult medical examination without abnormal findings (principal); E03.9 Hypothyroidism, unspecified; Z12.5 Encounter for screening for malignant neoplasm of prostate
CPT/HCPCS: 82570; 83789; 84153

== ENCOUNTER 2023-07-14 10:20 | Outpatient (REF) | payer OTHER, SELFPAY ==
[2023-07-14 16:11] LABS: Anion Gap 8.4 mmol/L (3-11); BUN 26 mg/dL (7-18); CO2 26.6 mmol/L (21.0-32.0); CREATININE 1.1 mg/dL (0.70-1.30); Calcium 9.2 mg/dL (8.5-10.1); Calculated LDL 94 mg/dL (<100); Chloride 105 mmol/L (98-107); Cholesterol 174 mg/dL (<200); Estimated GFR 71.77 (mL/min/1.73m2); Glucose 91 mg/dL (74-106); HDL Cholesterol 72 mg/dL (40-60); Potassium 4.3 mmol/L (3.5-5.1); Sodium 140 mmol/L (136-145); TSH 3.03 uIU/mL (0.36-3.74); Triglyceride 42 mg/dL (<150)
[2023-08-01 16:27] LABS: Creatinine, Random,U 73 mg/dL (16 - 326); Iodine/Creat Ratio, U 96 mcg/g Cr (<584)
== END 2023-07-14 10:21 | disposition home or self-care (01) ==
LOC: NCHCN 10:20
PROVIDERS: PCP Family Medicine; Visit Provider Family Medicine
DX: R94.6 Abnormal results of thyroid function studies (principal); R03.0 Elevated blood-pressure reading, without diagnosis of hypertension; Z87.448 Personal history of other diseases of urinary system; Z00.00 Encounter for general adult medical examination without abnormal findings
CPT/HCPCS: 80048; 80061; 82570; 83018; 83789; 84439; 84443

== ENCOUNTER 2023-09-08 16:26 | Outpatient (REF) | payer MEDICARE, SELFPAY ==
[2023-09-08 14:20] LABS: ESR 6 mm/hr (0-20)
[2023-09-08 14:43] LABS: ALT 29 U/L (16-63); AST 32 U/L (15-37); Albumin 3.7 g/dL (3.4-5.0); Alkaline Phosphatase 92 U/L (46-116); BUN 18 mg/dL (7-18); Bilirubin, Total 1.2 mg/dL (0.2-1.0); C-Reactive Protein 0.06 mg/dL (0.0-0.3); CREATININE 1.1 mg/dL (0.70-1.30); Calcium 9.4 mg/dL (8.5-10.1); Chloride 104 mmol/L (98-107); Creatine Kinase 101 U/L (39-308); Estimated GFR 71.77 (mL/min/1.73m2); FREE T4 1.32 ng/dL (0.76-1.46); Glucose 97 mg/dL (74-106); Sodium 138 mmol/L (136-145); TSH 2.23 uIU/mL (0.36-3.74); Total Protein 6.9 g/dL (6.4-8.2)
== END 2023-09-08 16:27 | disposition home or self-care (01) ==
LOC: NCHCN 16:26
PROVIDERS: PCP Family Medicine; Visit Provider Family Medicine
DX: I69.954 Hemiplegia and hemiparesis following unspecified cerebrovascular disease affecting left non-dominant side (principal)
CPT/HCPCS: 80053; 82550; 85652; 84439; 84443; 86140

== ENCOUNTER → 2023-10-25 10:01 | Outpatient (BNVA) | payer MEDICARE, SELFPAY | PROVIDERS: PCP Family Medicine; Referring Provider Family Medicine; Visit Provider Podiatrist | DX: I73.00 Raynaud's syndrome without gangrene (principal); T69.1XXA Chilblains, initial encounter; L60.3 Nail dystrophy; L84 Corns and callosities; L65.9 Nonscarring hair loss, unspecified; R60.0 Localized edema; R20.8 Other disturbances of skin sensation; R23.4 Changes in skin texture | CPT/HCPCS: 11056; 11721; 99203 ==

== ENCOUNTER → 2023-11-07 09:29 | Outpatient (BNVA) | payer MEDICARE, SELFPAY | PROVIDERS: PCP Family Medicine; Referring Provider Family Medicine; Visit Provider Psychiatry & Neurology Neurology | DX: I63.9 Cerebral infarction, unspecified (principal) | CPT/HCPCS: 99215 ==

== ENCOUNTER → 2023-11-20 14:35 | Outpatient (BNVA) | payer MEDICARE, SELFPAY | PROVIDERS: PCP Family Medicine; Referring Provider Family Medicine | DX: M23.91 Unspecified internal derangement of right knee (principal); M17.11 Unilateral primary osteoarthritis, right knee | CPT/HCPCS: 99214 ==

== ENCOUNTER → 2023-12-01 09:45 | Outpatient (BNVA) | payer MEDICARE, SELFPAY | PROVIDERS: PCP Family Medicine; Referring Provider Family Medicine; Visit Provider Student in an Organized Health Care Education/Training Program | DX: M23.91 Unspecified internal derangement of right knee (principal) | CPT/HCPCS: 20610; J1040 ==

== ENCOUNTER → 2023-12-04 04:09 | Outpatient (CLI) | payer MEDICARE, SELFPAY ==
--- NOTE | 2023-12-04 07:45 | DI.MRI_ITS ---
Exam(s) MR LOWER JOINT RT WO EXAM: MR LOWER JOINT RT WO CLINICAL HISTORY: PAIN,internal derangement rt knee, m23.91 TECHNIQUE: Multiplanar multisequence MRI of the knee was performed. COMPARISON: CR XR KNEE RT 3V AP,LAT,ANDRESSA from 03/25/2022 FINDINGS: EFFUSION: There is a moderate-large joint effusion. There is also a prominent Colon's cyst in the po pliteal fossa which measures cm length by 1.2 cm AP by 2.2 cm wide. This contains some debris and ex hibits sign of leakage of some fluid down the medial gastro cine medius surface. MARROW:There is subarticular bone edema in the outer aspect of the medial tibial plateau as well as i n the subarticular medial femoral condyle. No abnormal intraosseous signal in the lateral compartmen t nor in the fibular head and neck. There are no significant osseous lesions. PATELLOFEMORAL COMPARTMENT: The quadriceps tendon is intact. The patellar ligament is intact. There is mild thinning of the retropatellar cartilage over the mid facet level.There is an element of bipartite patella. CRUCIATE LIGAMENTS: The anterior cruciate ligament is intact.The posterior cruciate ligament is intac t. MEDIAL COMPARTMENT/MEDIAL MENISCUS: There is complex tear of the posterior horn medial meniscus exhib iting both oblique and horizontal tear components. There is, however, no detachment/tear at the leve l of the root. Mild extrusion of the anterior horn noted.. There is full-thickness cartilage loss over part of the main weight-bearing surface of the medial fem oral condyle as well as full-thickness cartilage loss over the subjacent medial tibial plateau with s ubarticular edema evident. There are no marginal osteophytes evident in the medial compartment. MEDIAL COLLATERAL LIGAMENT: Main component is intact. Also no patellar retinacular tears. LATERAL COMPARTMENT/LATERAL MENISCUS: There is no evidence of lateral meniscal tear.There are no jamar dral defects, osteochondral defects, subarticular marrow edema, nor osteophytes evident. ILIOTIBIAL BAND: Intact LATERAL COLLATERAL LIGAMENT COMPLEX: The fibular collateral ligament is intact. The biceps femoris t endon is intact.Popliteus muscle and tendon are intact. IMPRESSION: 1. The main finding here is a complex predominantly horizontal tear of the posterior horn of the medi al meniscus. There is significant full-thickness cartilage thinning over the main weight-bearing basim faces of the medial femoral condyle and subjacent medial tibial plateau with some subarticular bone e gila. 2. No significant findings in the lateral compartment nor within the patella where there is only mini mal retropatellar cartilage thinning. 3. Bipartite patella noted. No abnormal signal in the patella. 4. Cruciate and collateral ligaments are intact, as is the iliotibial band DATA REPOSITORY:
== END ==
PROVIDERS: PCP Family Medicine; Visit Provider Student in an Organized Health Care Education/Training Program
DX: S83.231A Complex tear of medial meniscus, current injury, right knee, initial encounter (principal); X58.XXXA Exposure to other specified factors, initial encounter
CPT/HCPCS: 73721

== ENCOUNTER 2023-12-08 15:23 | Outpatient (REF) | payer MEDICARE, SELFPAY ==
[2023-12-08 15:50] LABS: AST 27 U/L (15-37); Calculated LDL 63 mg/dL (<100); Cholesterol 147 mg/dL (<200); HDL Cholesterol 74 mg/dL (40-60); TSH 2.11 uIU/mL (0.36-3.74); Triglyceride 53 mg/dL (<150)
[2023-12-08 16:28] LABS: Creatine Kinase 71 U/L (39-308); FREE T4 1.08 ng/dL (0.76-1.46)
[2023-12-10 12:05] LABS: Apolipoprotein B, S 51 mg/dL
== END 2023-12-08 15:24 | disposition home or self-care (01) ==
LOC: NCHCN 15:23
PROVIDERS: PCP Family Medicine; Visit Provider Family Medicine
DX: E03.9 Hypothyroidism, unspecified (principal); R94.30 Abnormal result of cardiovascular function study, unspecified
CPT/HCPCS: 80061; 82172; 82533; 82550; 84439; 84443; 84450

== ENCOUNTER → 2023-12-11 08:55 | Outpatient (BNVA) | payer MEDICARE, SELFPAY | PROVIDERS: PCP Family Medicine; Referring Provider Family Medicine; Visit Provider Student in an Organized Health Care Education/Training Program | DX: M17.11 Unilateral primary osteoarthritis, right knee (principal) | CPT/HCPCS: 99214 ==

== ENCOUNTER 2024-01-09 13:18 | Outpatient (CLI) | payer MEDICARE, SELFPAY ==
--- NOTE | 2024-01-09 10:43 | DI.RAD_ITS ---
Exam(s) XR STANDING ALIGNMENT EXAM: XR STANDING ALIGNMENT CLINICAL HISTORY: RIGHT KNEE PAIN. TECHNIQUE: 2D digital imaging was performed. COMPARISON: CR XR HIP RT AP LAT ONLY from 12/05/2019 FINDINGS: 3 views There are bilateral hip prostheses which appear unremarkable. At the level knees there is moderate-advanced narrowing of the medial compartment of the right knee a n milder narrowing of the medial compartment of the left knee. There is no narrowing of the lateral compartments on either side. There is chondrocalcinosis in both medial lateral compartments of the l eft knee. Ankles unremarkable. There is asymmetric left-sided disc space narrowing at L4-5 noted. Sacroiliac joints appear unremark able. IMPRESSION: Degenerative changes in the knee, most evident in the medial compartment of the right knee. Satisfactory appearance of the bilateral hip prostheses. DATA REPOSITORY: RADIATION DOSE DELIVERED:
== END 2024-01-09 13:19 | disposition home or self-care (01) ==
LOC: DIORS 13:18
PROVIDERS: PCP Family Medicine; Referring Provider Family Medicine; Visit Provider Student in an Organized Health Care Education/Training Program
DX: M17.11 Unilateral primary osteoarthritis, right knee (principal); Z86.73 Personal history of transient ischemic attack (TIA), and cerebral infarction without residual deficits
CPT/HCPCS: 99214; 77073

== ENCOUNTER → 2024-01-31 03:29 | Outpatient (CLI) | payer MEDICARE, SELFPAY ==
--- NOTE | 2024-01-31 | DI.US_ITS ---
Exam(s) US AAA SCREENING EXAM: US AAA SCREENING CLINICAL HISTORY: DISORDER CIRCULATORY SYSTEM I99.9 VASCULAR DISORDER,SCREENING FOR AAA COMPARISON: US US AAA SCREENING from 05/20/2022 FINDINGS: Abdominal Aorta: Proximal: 2.5 x 2.4 cm Mid: 2.3 x 2.3 cm Distal: 2.2 x 2.2 cm Iliac's: Right: 1.4 x 1.4 cm Left: 1.4 x 1.3 cm Mild atherosclerotic disease is present. IMPRESSION: No evidence of abdominal aortic aneurysm. DATA REPOSITORY:
== END ==
PROVIDERS: PCP Family Medicine; Visit Provider Family Medicine
DX: I99.8 Other disorder of circulatory system (principal); Z13.6 Encounter for screening for cardiovascular disorders
CPT/HCPCS: 76706

== ENCOUNTER → 2024-02-01 10:00 | Outpatient (BNVA) | payer MEDICARE, SELFPAY | PROVIDERS: PCP Family Medicine; Referring Provider Family Medicine; Visit Provider Podiatrist | DX: T69.1XXA Chilblains, initial encounter (principal); I73.00 Raynaud's syndrome without gangrene; B35.1 Tinea unguium; B35.3 Tinea pedis | CPT/HCPCS: 11721; 17110 ==

== ENCOUNTER → 2024-02-28 10:00 | Outpatient (BNVA) | payer MEDICARE, SELFPAY | PROVIDERS: PCP Family Medicine; Referring Provider Family Medicine; Visit Provider Psychiatry & Neurology Neurology | DX: I63.9 Cerebral infarction, unspecified (principal); M62.542 Muscle wasting and atrophy, not elsewhere classified, left hand | CPT/HCPCS: 99214 ==

== ENCOUNTER → 2024-03-12 10:03 | Outpatient (BNVA) | payer MEDICARE, SELFPAY | PROVIDERS: PCP Family Medicine; Visit Provider Student in an Organized Health Care Education/Training Program | DX: M17.11 Unilateral primary osteoarthritis, right knee (principal) | CPT/HCPCS: 99213 ==

== ENCOUNTER 2024-04-16 07:34 | Outpatient (CLI) | payer MEDICARE, SELFPAY ==
[2024-04-16] VITALS (15 sets, daily range): BP systolic 141–177; BP diastolic 77–118; PULSE 40–59; RESP 8–20; TEMP 36.7; O2SAT 98–100
[2024-04-16] MEDS: fentaNYL 100 MCG/2 ML VIAL IVP (08:25)
[2024-04-16] MEDS: Midazolam 2 MG/2 ML VIAL IVP (08:25)
[2024-04-16] MEDS: Lactated Ringers 500 ML 80 ML IV (08:29)
--- NOTE | 2024-04-16 09:05 | PDOC.PAIN ---
Date of service: 04/16/24 Time of Service: 09:05 Pain Managment Procedure Note Procedure Note Procedure Note: PROCEDURE NOTE BILATERAL LUMBAR RADIOFREQUENCY ABLATION Date of Service: April 16, 2024 Patient:? Michel Kilgore? Provider:? Pepe Meza DO, MPH Michel Kilgore [facility] Lumbar Radiofrequency Ablation with the [facility].? Pre Operative Diagnosis: Lumbosacral Spondylosis without Myelopathy Post Operative Diagnosis: Same Pre procedure pain; VAS= 6/10 Comments: I previously evaluated him in the office. He had two LMBBs at . PROCEDURE: Radiofrequency Ablation of medial branches - bilateral L3, L4, L5 and lateral branches of bilateral S1. Michel?was interviewed and the medical record was reviewed.? There were no medical, pharmacologic, radiographic or other structural contraindications to attempting fluoroscopically guided BILATERAL Lumbar Radiofrequency Ablation.?Risks and expected side effects as well as potential benefit of the procedure were reviewed with Michel, and the patient's voiced concerns were addressed.? The printed consent form was signed.? Standard time-out procedure was performed. Michel was brought into the fluoroscopy suite and positioned into the prone position on the fluoroscopy table and allowed to adjust to a position of comfort. A grounding pad was placed on the left abdomen. The sterile field was prepared using chlorhexidine preparation of the skin and sterile draping. Local anesthesia superficial and deep was provided by local infiltration of 2% lidocaine. A 17g 100 mm radiofrequency introducer needle was placed to the planned anatomic targets guided with intermittent fluoroscopy with a perpendicular approach to terminally place at the junction of the superior articular process and the transverse process of the bilateral L4, L5, the base of the sacral ala on the bilateral for the L5 medial branch nerve and the area between base of the sacral ala to the S1 foramen bilaterally. The stylets were removed and radiofrequency probes with a 4mm active tip were then inserted. Needle tip position of the probes was verified in the AP, oblique, and lateral views. At each site, the medial branch nerve was stimulated at 2 Hz to a maximum 1-2 volts determined to finalize safe needle and electrode placement. The patient was awake and responsive during this portion of the procedure. Each target was anesthetized with 1-2 mL of 2 % Lidocaine for anesthesia for lesioning and then each target was lesioned at 80 degrees Celsius for 2 minutes and 30 seconds. Tissue impedances were noted to be between 250 and 500 Ohms. I injected 1/4 cc of Depomedrol (40 mg/cc) followed by 1 cc of 0.5% Bupivacaine at each segmental sensory nerve. There was no unusual discomfort expressed by Michel. The needles were withdrawn without difficulty and bandages placed over the needle placement sites, the patient was observed and was without hemodynamic, neurologic, or allergic reactions. Fluoroscopic images were digitally archived. POST PROCEDURE EVALUATION: IMPRESSION: 1. Summary of procedure. Medication given is documented in the MAR. 2. Follow up plan: Michel to contact [facility] as needed.?This procedure may be repeated if the patient achieves at least 50% improvement in pain/function for at least 6 months. 3. Estimated Blood Loss: <5 mls 4. Fluoroscopy time: Documented in the EMR. Follow up plans and appointments were discussed with the Michel. Post procedure instruction was given as documented in nursing documentation and having met discharge criteria, Michel [facility] from the [facility]. COMMENTS: No apparent complications. Post-procedure pain: VAS= 5/10. He continued to have pain in the right SIJ area. If this and the knee surgery to not greatly reduce his low back pain, we may consider a right sacroiliac joint injection. I did discuss this with him. I personally completed the entire procedure. PEPE MEZA DO, MPH [employer] - Subspecialty board certification in Pain Medicine [facility]
[2024-04-16] MEDS: Nerve Block Tray 1 EACH MC (09:08)
[2024-04-16] MEDS: methylPREDNISolone ACETATE 40 MG/ML VIAL IJ (09:09)
[2024-04-16] MEDS: Bupivacaine 0.5% Pres-Free 10 ML VIAL IJ (09:09)
[2024-04-16] MEDS: Lidocaine 2% Multi-Dose 20 ML VIAL IJ (09:09)
--- NOTE | 2024-04-16 09:15 | DI.RAD_ITS ---
Exam(s) XR PAIN CLINIC LUMBAR SP 2V EXAM: XR PAIN CLINIC LUMBAR SP 2V CLINICAL HISTORY: DX: Lumbar Spondylosis TECHNIQUE: 2D and realtime digital imaging was performed. Radiologist not present. CONTRAST MATERIAL: None. COMPARISON: No exams were available for comparison FINDINGS: Fluoroscopy was provided for pain management therapy. Please refer to procedure report or details. Radiation Exposure Index: Ka,r= 22.90 mGy IMPRESSION: As above. RADIATION DOSE DELIVERED:
== END 2024-04-16 07:35 | disposition home or self-care (01) ==
LOC: PC 07:34
PROVIDERS: PCP Family Medicine; Visit Provider Preventive Medicine Occupational Medicine
DX: M54.50 Low back pain, unspecified (principal); M47.817 Spondylosis without myelopathy or radiculopathy, lumbosacral region
CPT/HCPCS: 64635; 64636; 72100; J0665; J1010; J2003; J2250; J3010

== ENCOUNTER → 2024-04-17 14:30 | Outpatient (BNVA) | payer MEDICARE, SELFPAY | PROVIDERS: PCP Family Medicine; Referring Provider Family Medicine; Visit Provider Student in an Organized Health Care Education/Training Program | DX: M17.11 Unilateral primary osteoarthritis, right knee (principal) | CPT/HCPCS: 99214 ==

== ENCOUNTER 2024-04-26 06:03 | Day surgery (SDC) | payer MEDICARE, SELFPAY ==
[2024-04-26] VITALS (29 sets, daily range): BP systolic 121–149; BP diastolic 53–115; PULSE 35–93; RESP 8–18; TEMP 36.4–36.7; O2SAT 97–100; BMI 27.8
[2024-04-26] MEDS: Gabapentin 300 MG CAP (06:48)
[2024-04-26] MEDS: Celecoxib 200 MG CAP (06:48)
[2024-04-26] MEDS: Acetaminophen 500 MG TAB ×2 (06:48)
--- NOTE | 2024-04-26 06:49 | ANES.PREOP_ITS ---
General Info Date of Service Date Performed: 04/26/24 Height: 5 ft 9 in Weight: 85.6 kg Body Mass Index (BMI): 27.8 Surgical Procedure: Operation Date: 04/26/24 08:00 Proposed Procedure Side Surgeon p Medial Unicondylar Knee Arthroplasty Right Jonas Rocha MD Meds Allergies and Home Medications Allergies Allergy/AdvReac Type Severity Reaction Status Date / Time prednisone AdvReac Unknown Other (See Verified 04/26/24 06:14 Comment) hayfever Allergy Other (See Uncoded 04/26/24 06:14 Comment) famotidine AdvReac Intermediate Other (See Uncoded 04/26/24 06:14 Comment) Home Medication Medication Instructions Recorded cholecalciferol (vitamin D3) 25 1 tab PO DAILY 07/22/15 mcg (1,000 unit) tablet magnesium 200 mg tablet 200 mg PO HS 07/22/15 aluminum hydrox-magnesium carb 254 5 ml PO TID 10/29/20 mg-237.5 mg/5 mL oral suspension (Gaviscon Extra Strength) multivitamin (Daily Multi-Vitamin 1 tab PO DAILY 10/29/20 tablet) aspirin 81 mg tablet,delayed 81 mg PO DAILY 09/26/23 release (Adult Low Dose Aspirin) cimetidine 200 mg tablet 200 mg PO QAC 09/26/23 levothyroxine 50 mcg capsule 50 mcg PO DAILY 11/17/23 losartan 25 mg tablet 12.5 mg PO DAILY 12/01/23 rosuvastatin 5 mg tablet 5 mg PO DAILY 12/11/23 cholecalciferol (vitamin D3) 50 50 mcg PO DAILY 01/29/24 mcg (2,000 unit) capsule ketoconazole 2 % topical cream 1 applic topical BID #60 grams 04/23/24 acetaminophen 650 mg 650 mg PO ONCE 04/26/24 tablet,extended release (Tylenol Arthritis Pain) naproxen 250 mg tablet 250 - 500 mg (1 - 2 x 250 mg) PO 04/26/24 BID PRN moderate pain and swelling #40 tabs omeprazole 20 mg capsule,delayed 20 mg PO DAILY 04/26/24 release oxycodone 5 mg tablet 5 - 10 mg (1 - 2 x 5 mg) PO .q4-6h 04/26/24 PRN severe pain #18 tabs Current Visit Medications: Current Medications Generic Name Dose Route Start Last Admin Trade Name Freq PRN Reason Stop Dose Admin Celecoxib 400 mg 04/26/24 07:00 Celecoxib 200 Mg Cap PO 05/26/24 06:59 PREOP CAMRYN Ringer's Solution 1,000 mls @ 30 mls/hr 04/26/24 06:00 IV 04/26/24 23:59 INFUSION CAMRYN Cefazolin Sodium/Dextrose 2 gm in 50 mls @ 100 mls/hr 04/26/24 06:00 Ancef Duplex IVPB 04/26/24 23:59 PREOP CAMRYN Tranexamic Acid/Sodium Chloride 1,000 mg in 100 mls @ 600 mls/hr 04/26/24 06:00 IVPB 04/26/24 23:59 PREOP CAMRYN IV Miscellaneous Supplies 1 each 04/26/24 06:00 Iv Access IV 04/26/24 23:59 DIRECTED CAMRYN Sodium Chloride 0 ml 04/26/24 06:00 Normal Saline Flush 10 Ml Syr IV 04/26/24 23:59 PRN PRN Sodium Chloride 0 ml 04/26/24 06:00 Normal Saline 10 Ml Vial IJ 04/26/24 23:59 DIRECTED PRN Sterile Water 0 ml 04/26/24 06:00 Water,Injection,Sterile 10 Ml Vial IJ 04/26/24 23:59 DIRECTED PRN PFSH Active Problems Active Problems: Problem Status Onset Code Atrophy of left hand muscles M62.542 Lumbosacral spondylosis without myelopathy M47.817 Tinea pedis B35.3 Onychomycosis B35.1 Internal derangement of right knee M23.91 Localized osteoarthritis of right knee M17.11 Nail dystrophy L60.3 Pernio T69.1XXA Lumbar herniated disc M51.26 Vitamin B12 deficiency (non anemic) E53.8 Vegetarian Z78.9 Callus of foot L84 Hypothyroidism (acquired) E03.9 CVA (cerebral vascular accident) I63.9 Degenerative arthritis of knee, bilateral M17.0 Barretts esophagus K22.70 Ascending aorta dilation I77.810 Raynauds syndrome I73.00 BPH (benign prostatic hyperplasia) N40.0 RBBB I45.10 DVT prophylaxis Z29.9 Amnesia R41.3 GERD (gastroesophageal reflux disease) K21.9 Medical History Medical History Discharge planning issues Ocular migraine Macrocytosis Dehydration after exertion GABY (acute kidney injury) Confusion Hamstring tendinitis of right thigh Tendinitis involving right hip abductors Osteoarthritis of left hip Vertigo Right shoulder pain Malaise and fatigue Hip pain, right Leukopenia Cyst of skin Bilateral leg pain Elevated blood-pressure reading without diagnosis of hypertension Knee pain, right Decreased hearing Abnormal Holter monitor finding Family history of abdominal aortic aneurysm Right groin pain Back pain Bradycardia History of renal insufficiency Pt. denies Elevated MCV Impacted cerumen of left ear Arthritis, lumbar spine Narrowing of intervertebral disc space Bone spur 1st degree AV block Ophthalmoplegic migraine Medical History Comments:: last surgery, R hip revision Surgical History Surgical History H/O radiofrequency ablation (RFA) of nerve of lumbar spine S/P tonsillectomy H/O esophagogastroduodenoscopy History of hip replacement H/o BIlateral hip replacements as well as revision of R total hip replacement x2 Tobacco Smoking/Tobacco Use Status: Never Alcohol Alcohol Intake: current Alcohol intake frequency: holidays/special occasions only Alcohol type: beer Substance Use Substance use: Never Substance use type: does not use Details: alcohol: last Vital Signs and Lab Results Vital Signs Most Recent Vital Signs in EMR: Most Recent Vital Signs Temp Pulse Resp BP Pulse Ox 36.7 C 47 L 18 149/75 H 98 04/26/24 06:28 04/26/24 06:28 04/26/24 06:28 04/26/24 06:28 04/26/24 06:28 Lab Results Blood Type / Crossmatch: No Data to Display Complete Blood Count: No Data to Display Complete Metabolic Panel: No Data to Display Liver Function Panel: No Data to Display Coagulation Panel: No Data to Display Cardiac Panel: No Data to Display Arterial Blood Gas: No Data to Display Venous Blood Gas: No Data to Display Pancreas Panel: No Data to Display Thyroid Panel: No Data to Display Infectious Disease: No Data to Display Blood Cultures: No Data to Display Toxicology Panel: No Data to Display Imaging and Studies Imaging and Studies Study information below may be from another EMR and interpreted by another provider. Please see original notes in EMR for more complete details. EKG Summary: 01/18/2022: Exam: Resting ECG Reason for Exam: hypertension Patient Location: E HR:52 bpm ECG Measurements Heart Rate 52 AXIS GA 262 P 64 QRSd 129 QRS -42 QT 443 T25 QTc 398 Conclusion Sinus bradycardia...rate< 60 Atrial premature complexes in couplets...pair SV complexes w/ short R-R Prolonged GA interval...GA >220, V-rate 50- 90 Right bundle branch block...QRSd>120, terminal axis(90,270) Inferior infarct, old...Q >35mS, II III aVF sinus viviana, PAC, RBBB I have reviewed and I agree with the emergency room physician's ECG interpret ation. Echocardiogram Summary: 06/21/21: Conclusion Normal left ventricular wall thickness and chamber size. Estimated ejection fraction is 60 to 65%. Wall motion is normal Normal right ventricular size and systolic function Both atria are normal in size The aortic valve is mildly sclerotic and trileaflet with trace aortic regurgitation Normal mitral valve with trace regurgitation Normal tricuspid valve, mild regurgitation, normal estimated right ventricular systolic pressure Normal pulmonic valve with trace physiologic regurgitation Very mildly dilated ascending aorta measuring 3.63 cm Anesthesia Assessment and Plan Anesthesia History Personal History: PONV Family History: No Family History of Anesthesia Complications Exercise Tolerance Exercise Tolerance: Metabolic Equivalents>4 Pertinent Negatives Pertinent Negatives: No Major Cardiovascular Symptoms or Complaints and No Major Pulmonary Symptoms or Complaints Cardiac & Pulmonary Exam Cardiac Exam: Normal S1/S2 Heart Sounds Pulmonary Exam: Clear Bilateral Breath Sounds Implantable Cardiac Device Does patient have a Pacemaker or an ICD?: No Airway Exam Known Difficult Airway: No Mallampati Class: 1 Mouth Opening: Normal (> 3cm) Thyromental Distance: Greater than 3 cm Neck Range of Motion: Full ROM Neck Circumference: Normal Teeth Condition: Normal Dentition ASA Classification ASA Score: ASA 3 Emergency Case?: No NPO Status NPO Status: NPO Clears >2 hours, Solids >8 hours Anesthesia Plan Resuscitation Status: Full Code Anesthesia Technique: General Anesthesia Airway Planned: Endotracheal Tube Pain Management: Surgeon and patient request nerve block (Declines preoperative block, reserved for rescue if necessary) Monitors Used: Standard Monitors and SedLine
[2024-04-26] MEDS: Lactated Ringers 1,000 ML 30 ML IV (07:00)
--- NOTE | 2024-04-26 07:07 | PDOC.DSDIS_ITS ---
Date of service: 04/26/24 Time of Service: 12:30 Discharge Plan Disposition Patient Disposition: Home Condition: Stable Discharge Details Attending Provider: Jonas Rocha Primary Care Provider: Jessica Longoria V Home Meds and New Rx's Prescriptions: New naproxen 250 mg tablet 250 - 500 mg PO BID PRN (Reason: moderate pain and swelling) Qty: 40 0RF oxycodone 5 mg tablet 5 - 10 mg PO .q4-6h MDD 30 mg PRN (Reason: severe pain) Qty: 18 0RF Continued multivitamin [Daily Multi-Vitamin] Tablet 1 tab PO DAILY Gaviscon Extra Strength 254-237.5 mg/5 mL suspension 5 ml PO TID Patient Comments: takes advanced from the [place] cholecalciferol (vitamin D3) 50 mcg (2,000 unit) capsule 50 mcg PO DAILY ketoconazole 2 % cream 1 applic topical BID Qty: 60 5RF Rx Instructions: Apply to fungal toenails; using Urea 40% to toenails at an opposite time of day. rosuvastatin 5 mg tablet 5 mg PO DAILY aspirin [Adult Low Dose Aspirin] 81 mg tablet,delayed release (DR/EC) 81 mg PO DAILY cimetidine 200 mg tablet 200 mg PO QAC levothyroxine 50 mcg capsule 50 mcg PO DAILY losartan 25 mg tablet 12.5 mg PO DAILY magnesium 200 MG tablet 200 mg PO HS Patient Comments: pt. takes 400 mg cholecalciferol (vitamin D3) 1,000 UNITS tablet 1 tab PO DAILY omeprazole 20 mg capsule,delayed release(DR/EC) 20 mg PO DAILY acetaminophen [Tylenol Arthritis Pain] 650 mg tablet extended release 650 mg PO ONCE Discharge Instructions Additional Instructions: Surgery: Right medial unicondylar knee replacement Activity: Weightbearing as tolerated. Recommend elevation to minimize swelling and discomfort. Walk as comfort allows. May use crutches or walker as needed for a few weeks. It is important to restore full knee extension as soon as possible. Gently increase knee flexion over the next few weeks. Do not rest with pillows behind knee to prevent knee from getting stuck bent. Encourage ankle pumps and wiggling toes to increase circulation. A physical therapy prescription will be sent electronically to begin in 2-3 weeks. Prescriptions: Continue home Aspirin 81 mg take 1 twice a day to prevent a blood clot 30 days, starting tomorrow, and then resume regular daily dosing. Naproxen 250 mg take 1-2 every 12 hours with a meal as needed for moderate pain Oxycodone 5 mg take 1-2 every 4-6 hours as needed for severe pain You may use [id number] Tylenol (acetaminophen) as needed for mild pain. These pain medications may be taken all at once or in different combinations as needed. Also, recommend Colace (docusate) as a stool softener as surgery and pain medicine cause constipation. You may try [id number] diphenhydramine (Benadryl) 25-50 mg nightly as a sleep aid Dressings: Leave Band-Aid in place until follow-up. Keep clean and dry at all times. May remove Andriy wrap tomorrow. May re-wrap with Andriy wrap to help control swelling as needed. Follow-up: 10-[address] Rocha You may take off the leg compression Andriy wrap and stockings tomorrow at home. You may also leave them on a few days longer if you have a history of leg swelling or edema. Let us know right away if you develop any redness, drainage, fevers, chest pain, or trouble breathing. Do not drink alcohol or drive for at least 24 hours after anesthesia. Please call the office during business hours with any questions or concerns. Stand Alone Forms: Anesthesia Discharge Inst., Cristina Fajardo (U) Referrals: Jonas Rocha MD [ [facility] STAFF PHYSICIAN] - 05/08/24 10:30 am Discharge Orders Discharge Orders: Discharge Order (Routine); Ordered 04/26/24 Ordered By: Smita Higgins DS: Diagnosis Discharge Diagnosis (1) Localized osteoarthritis of right knee: Status: Acute
--- NOTE | 2024-04-26 07:25 | ROE_ITS ---
Date of service: 04/26/24 Time of Service: 07:30 Operative Note Operative Note DATE OF PROCEDURE: 04/26/24 PRE-OP DIAGNOSIS: Right knee medial compartmental arthritis POST-OP DIAGNOSIS: same PROCEDURE: Right knee medial unicompartmental arthroplasty, CPT # 65317 The household personal assistant was medically required as this procedure involves retraction, protection of neurovascular structures, and manipulation of multiple instruments and implants at the same time, which cannot be done without a skilled household personal assistant. SURGEON: Jonas Rocha TILE MASON: Smita Higgins ANESTHESIA TYPE: Local By Surgeon and General LMA/ETT Refer to Anesthesia Record ESTIMATED BLOOD LOSS: 75 TOURNIQUET TIME: 0 COMPLICATIONS: None Patient was transported to: PACU Patient's condition: stable Implants: DePuy Sigma HP partial knee size 4 metal-backed tibial tray, 7 mm tibial insert fixed bearing, size 5 femoral component Indications: Please see complete medical record for details. Findings: Significant isolated medial compartment arthritis and meniscus tearing. Intact ACL. Intact lateral and patellofemoral cartilage. Minimal marginal intercondylar osteophytes. Procedure Description: The patient was taken to the operating room and transferred to the operating room table. General anesthesia was induced. All bony prominences were well- padded. Preoperative antibiotics and 1 g TXA were administered. A tourniquet was placed loosely over padding high on the patient's thigh. The knee and lower extremity were prepped and draped in the usual sterile fashion. The correct patient, procedure, and side of the procedure were all verified prior to incision. A slightly medial of midline longitudinal approach was used to the knee extending from the superior pole the patella to the distal aspect of the tibial tubercle. The quadriceps tendon, patella borders, and patellar tendon were exposed. A full-thickness arthrotomy was performed starting splitting the quadriceps tendon and leaving a sleeve of tissue on the medial aspect of the patella and taking care to progress along the medial margin the patellar tendon. The MCL was elevated off the proximal medial tibia. Minimal intercondylar ma rginal osteophytes were resected. The tibial alignment jig was set in place on the anterior medial aspect of the tibia and carefully adjusted to achieve proper alignment in the coronal and sagittal planes. Reciprocating saw was used to create the vertical cut at the medial aspect of the medial tibial eminence taking care to protect the ACL ligament footprint. The transverse cut was then done using the microsagittal saw through the jig taking care to retract and protect the MCL. The bone piece and cut were inspected and found to be appropriate for patient anatomy. A box rasp was used to clean up the cut especially the L component. The 7 mm spacer block was inserted and found to have good equal stability in full extension and 90 degrees of flexion with approximately 2 mm of joint space opening in about 20 degrees of flexion. The tibial trial spacer block was used to garrison the rotational alignment and anterior extent of the femoral component. The spacer block was removed and the tibia was sized with the depth gauge. The distal femoral cutting block was inserted taking care to orient it appropriately. The cut was done using the saw through the guide. The posterior cutting block was then applied to the distal cut, ensured to be flush, rotation set, and it was pinned in place. The posterior cut was completed through the guide. The guide was removed, and the femur was sized with the femoral sizing blocks. The appropriate sized cutting jig was selected. Care was taken to ensure the block was flush with the resected distal and posterior femur bone surfaces. A curved gouge was used to cut the profile of the proximal tip of the femoral prosthesis, garrison the extent of the anterior chamfer cut, and prevent trochlear cartilage delamination. The anterior cut was done using the osteotomes, the drill was used to drill the 2 peg holes, and the posterior chamfer cut was done through the jig with the saw. This last cutting block and bone cuts were removed. The medial meniscus remnant was removed. The femoral component trial was placed on the distal femur and the 7 mm spacer block confirmed appropriate balancing in flexion, extension, and again 2 mm of medial joint space opening in about 20 degrees of flexion. Tibial template was inserted and the size confirmed to be appropriate. The keel was used by hand to remove bone from the slot and the tibial peg drill was used in the peg hole. The pulse lavage was used to clean the bone surfaces. SmartSet medium viscosity cement was prepared. At the appropriate time during the early working phase, the cement was applied to the backside of the tibial and femoral components. Then, cement was carefully placed and pressurized into the proximal tibia taking care to only have minimal cement posteriorly. The tibial component was inserted at an angle and then impacted directing pressure from posterior to anterior to keep the flow of cement from posterior to anterior. Cement was then applied to the distal femur and the femoral component impacted. Excess cement was removed. The knee was brought into full extension and this position with axial load was maintained until the cement was completely hardened at 18 minutes. A combination R.E.C.K. (123 mg Ropivacaine, 0.25 mg Epinephrine, 0.04 mg Clonidine, and 15 mg Ketorolac) 50 ml injection was widely infiltrated about the knee. The wound was copiously irrigated with the pulse lavage and Surgiphor. Tibial tray freight air brake fitter was removed, and the final tibial insert was inserted and clicked into place. The knee was tested through range of motion found to be stable with equal balancing from full extension to flexion past 90 degrees and a couple millimeters of medial joint space opening in about 20 degrees of flexion. Appropriate hemostasis was achieved. The capsule was approximated using #1 Vicryl in a figure-of-8 interrupted fashion and then closed using Stratafix #1 PDS barbed suture in a running fashion. The superficial layers were irrigated. Subcutaneous tissue was closed using 2-0 Monocryl in a buried interrupted fashion. Skin was closed using 3-0 Monocryl in a buried subcuticular fashion. The skin incision was glued and then covered with a Mepilex Ag dressing. An Andriy wrap was applied from the foot up to the thigh. The patient awoke from anesthesia without complication was transferred to the recovery room in stable condition.
[2024-04-26] MEDS: ceFAZolin 2 GM/50 ML BAG IVPB (07:55)
[2024-04-26] MEDS: TRANEXAMIC ACID/SOD. CHL. 1,000 MG/100 ML BAG 600 MG IVPB (08:10)
[2024-04-26] MEDS: Bupivacaine 0.25% Pres-Free W/EPI 30 ML VIAL (08:28)
--- NOTE | 2024-04-26 11:30 | DI.RAD_ITS ---
Exam(s) XR KNEE RT 2V AP,LAT EXAM: XR KNEE RT 2V AP,LAT CLINICAL HISTORY: knee arthritis. TECHNIQUE: 2D digital imaging was performed. Two images were obtained. AP and lateral views were ob tained. COMPARISON: CR XR KNEE RT 3V AP,LAT,ANDRESSA from 03/25/2022 CR XR STANDING ALIGNMENT from 01/09/2024 FINDINGS: The patient is now status post right hemiarthroplasty. The medial femoral tibial joint has been repl aced. Postsurgical changes are seen in the soft tissues. There are mild degenerative changes seen a t the patellofemoral joint. The bones are intact. IMPRESSION: Status post right knee hemiarthroplasty. DATA REPOSITORY: RADIATION DOSE DELIVERED:
[2024-04-26] MEDS: ceFAZolin 1 GM/50 ML BAG IVPB (11:39)
--- NOTE | 2024-04-26 11:42 | W.ANESPOSTOP ---
Postoperative Evaluation Date, Time and Location Date Performed: 04/26/24 Time Performed: 11:42 Patient Location: PACU Vital Signs Most Recent Imported Vital Signs: Most Recent Vital Signs Temp Pulse Resp BP Pulse Ox 36.7 C 41 L 10 L 140/67 99 04/26/24 11:31 04/26/24 11:32 04/26/24 11:32 04/26/24 11:32 04/26/24 11:32 Pain Score Most Recent Pain Score: Most Recent Pain Score Pain Level 5 04/26/24 11:30 Assessment Mental Status: Arousable with meaningful communication Airway and Respiratory Function: Patent airway with normal (patient baseline) respiratory exam Cardiovascular Function: Hemodynamically Stable Hydration Status: Adequately Hydrated Nausea & Vomiting: No Nausea or Vomiting Pain: Pain is tolerable per patient Peripheral Nerve Block: Patient did not receive a nerve block
[2024-04-26] MEDS: HYDROmorphone 2 MG/ML SYR IVP (11:46)
[2024-04-26] MEDS: Normal Saline 10 ML VIAL IJ (11:46)
[2024-04-26] MEDS: Lactobacillus Acidophilus CAP 1 CAP PO (13:07)
== END 2024-04-26 15:09 | disposition home or self-care (01) ==
PROVIDERS: PCP Family Medicine; Visit Provider Student in an Organized Health Care Education/Training Program
PROC: (CPT 27446; principal; 2024-04-26 07:30)
DX: M17.11 Unilateral primary osteoarthritis, right knee (principal)
CPT/HCPCS: 27446; C1776; 73560; J0131; J0665; J0690; J1100; J1170; J1171; J1596; J1885; J2001; J2250; J2371; J2405; J2704; J3010

== ENCOUNTER 2024-05-08 14:55 | Outpatient (CLI) | payer MEDICARE, SELFPAY ==
--- NOTE | 2024-05-08 10:30 | DI.RAD_ITS ---
Exam(s) XR KNEE RT 2V AP,LAT EXAM: XR KNEE RT 2V AP,LAT INDICATION: F/U RIGHT UKA. COMPARISON: CR XR KNEE RT 2V AP,LAT from 04/26/2024 TECHNIQUE: 2D digital imaging was performed. Two views. FINDINGS: There has been no change in the medial femoral tibial joint space prosthesis. No abnormal surroundin g bony lucencies. 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 Small joint effusion. Mild anterior soft tissue swelling. Impression: Stable postsurgical appearance. DATA REPOSITORY: RADIATION DOSE DELIVERED:
== END 2024-05-08 14:56 | disposition home or self-care (01) ==
LOC: DIORS 14:56
PROVIDERS: PCP Family Medicine; Referring Provider Family Medicine
DX: Z47.1 Aftercare following joint replacement surgery; Z96.651 Presence of right artificial knee joint
CPT/HCPCS: 73560

== ENCOUNTER → 2024-05-30 09:48 | Outpatient (BNVA) | payer MEDICARE, SELFPAY | PROVIDERS: PCP Family Medicine; Referring Provider Family Medicine; Visit Provider Podiatrist | DX: T69.1XXA Chilblains, initial encounter (principal); I73.00 Raynaud's syndrome without gangrene; B35.1 Tinea unguium; B35.3 Tinea pedis; M79.671 Pain in right foot; M79.672 Pain in left foot | CPT/HCPCS: 11721 ==

== ENCOUNTER 2024-06-17 15:04 | Outpatient (REF) | payer MEDICARE, SELFPAY ==
[2024-06-17 21:19] LABS: ALT 28 U/L (16-63); AST 39 U/L (15-37); Albumin 3.7 g/dL (3.4-5.0); Alkaline Phosphatase 77 U/L (46-116); Anion Gap 8.7 mmol/L (3-11); BUN 24 mg/dL (7-18); Bilirubin, Total 0.81 mg/dL (0.2-1.0); CO2 25.3 mmol/L (21.0-32.0); CREATININE 1.2 mg/dL (0.70-1.30); Calculated LDL 57 mg/dL (<100); Chloride 106 mmol/L (98-107); Cholesterol 137 mg/dL (<200); Creatine Kinase 143 U/L (39-308); Estimated GFR 64.25 (mL/min/1.73m2); Glucose 91 mg/dL (74-106); HDL Cholesterol 72 mg/dL (40-60); Potassium 4.3 mmol/L (3.5-5.1); Sodium 140 mmol/L (136-145); Total Protein 6.5 g/dL (6.4-8.2); Triglyceride 44 mg/dL (<150)
[2024-06-17 21:42] LABS: FREE T4 1.23 ng/dL (0.76-1.46)
== END 2024-06-17 15:05 | disposition home or self-care (01) ==
LOC: NCHCN 15:04
PROVIDERS: PCP Family Medicine; Visit Provider Family Medicine
DX: I10 Essential (primary) hypertension (principal)
CPT/HCPCS: 80053; 80061; 82550; 84439

== ENCOUNTER 2024-06-19 11:42 | Outpatient (CLI) | payer MEDICARE, SELFPAY ==
--- NOTE | 2024-06-19 10:52 | DI.RAD_ITS ---
Exam(s) XR KNEE RT 2V AP,LAT EXAM: XR KNEE RT 2V AP,LAT CLINICAL HISTORY: F/U RIGHT UKA. TECHNIQUE: 2D digital imaging was performed. Two images were obtained. AP and lateral views were ob tained. COMPARISON: CR XR KNEE RT 2V AP,LAT from 05/08/2024 FINDINGS: BONES: There are stable post operative changes of a right knee hemiarthroplasty present. No fracture or dislocation. 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 JOINTS: The orthopedic hardware is in good position. No evidence of hardware loosening. SOFT TISSUE: Normal. IMPRESSION: Stable right knee hemiarthroplasty. DATA REPOSITORY: RADIATION DOSE DELIVERED:
== END 2024-06-19 11:43 | disposition home or self-care (01) ==
LOC: DIORS 11:42
PROVIDERS: PCP Family Medicine; Referring Provider Family Medicine; Visit Provider Student in an Organized Health Care Education/Training Program
DX: Z47.1 Aftercare following joint replacement surgery; Z96.651 Presence of right artificial knee joint
CPT/HCPCS: 73560

== ENCOUNTER 2024-07-04 09:28 | Outpatient (CLI) | payer MEDICARE, SELFPAY ==
[2024-07-04 09:40] VITALS: BP 125/77; PULSE 60; RESP 18; TEMP 36.5; O2SAT 98
[2024-07-04 10:02] VITALS: PULSE 52; O2SAT 100
[2024-07-04 10:05] VITALS: PULSE 51; RESP 11; O2SAT 100
[2024-07-04 10:10] VITALS: PULSE 58; RESP 12; O2SAT 99
[2024-07-04 10:13] VITALS: BP 143/90; PULSE 47
--- NOTE | 2024-07-04 10:13 | DI.RAD_ITS ---
Exam(s) XR PAIN CLINIC LUMBAR SP 2V EXAM: XR PAIN CLINIC LUMBAR SP 2V CLINICAL HISTORY: Dx: Lumbar Radiculopathy TECHNIQUE: 2D and realtime digital imaging was performed. CONTRAST MATERIAL: Refer to procedure report. COMPARISON: No exams were available for comparison FINDINGS: Fluoroscopy was provided for Dr. Meza during the performance of a lumbar epidural steroid injection. Please refer to the procedure report for complete details. Ka,r=5.69 mGy IMPRESSION: RADIATION DOSE DELIVERED: 0.0 0.0 0
[2024-07-04] MEDS: Epidural Tray 1 EACH MC (10:20)
[2024-07-04] MEDS: Omnipaque 240 MG/ML 50 ML BTL IJ (10:20)
[2024-07-04] MEDS: methylPREDNISolone ACETATE 80 MG/ML VIAL IJ (10:20)
--- NOTE | 2024-07-04 13:07 | PDOC.PAIN ---
Date of service: 07/04/24 Time of Service: 10:10 Pain Managment Procedure Note Procedure Note Procedure Note: PROCEDURE NOTE LUMBAR EPIDURAL STEROID INJECTION Date of Service: July 04, 2024 Patient:Michel Farrar? Provider: Pepe Meza DO, MPH Michel Kilgore has been referred to the [facility] for a lumbar epidural steroid injection. Pre-operative diagnosis: Lumbosacral Radiculopathy Post-operative diagnosis: Same Pre-Procedure Pain: VAS= 7 /10 Comments: I previously evaluated him in the office. His pain is to the left leg. Michel was interviewed and the medical record was reviewed.? There were no medical, pharmacologic, radiographic or other structural contraindications to attempting fluoroscopically guided Lumbar epidural steroid injection.? Risks, potential side effects, indications, and potential benefits of the procedure were reviewed with Michel.? Questions and concerns were addressed.? After it was clear that Michel was fully informed about the procedure, the printed consent form was signed by the patient and myself.? Michel was placed in the prone position on the fluoroscopy table and automated blood pressure cuff and pulse oximeter applied. The skin entry point for entering/approaching the epidural space for the lumbar epidural steroid injection was marked. Following thorough chlorhexadine preparation of the skin and draping and 1% lidocaine infiltration of the skin entry point and subcutaneous tissues, an 18 gauge Touhy needle was placed and advanced under fluoroscopic guidance and with loss of resistance technique into the L5-S1 epidural space. Needle tip placement and depth were aided and confirmed by fluoroscopy. There was no paresthesia or return of blood or CSF through the needle. 1 mls of Omnipaque 240 was injected with clear epidural spread confirmed with fluoroscopy. 80 mg of Depo-Medrol was? injected. This was followed by 1 ml of preservative-free normal saline to flush the steroid out of the needle. There was no unusual discomfort expressed by Michel. The needle was withdrawn without difficulty. (49 mls of Omnipaque was wasted) Michel was observed and was without hemodynamic, neurologic, or allergic reactions.? Fluoroscopic images were digitally archived. Michel's vital signs were stable throughout the procedure and were as recorded in nursing records. Follow up plans and appointments were discussed with Michel. Post procedure instruction was given as documented in nursing records and having met discharge criteria Michel was discharged from the [facility]. COMMENTS: No apparent complications. Post-procedure pain: VAS= 7/10. Michel to contact [facility] as needed. If at least 50% improvement in pain and/or function for at least 3 months is achieved, this procedure can be repeated. I personally performed this entire procedure. PEPE MEZA DO, MPH ABPMR-subspecialty board certification in Pain Medicine [facility] [facility]
== END 2024-07-04 09:29 | disposition home or self-care (01) ==
LOC: PC 09:29
PROVIDERS: PCP Family Medicine; Visit Provider Preventive Medicine Occupational Medicine
DX: M54.50 Low back pain, unspecified (principal); M54.16 Radiculopathy, lumbar region
CPT/HCPCS: 62323; 72100; J1010; Q9967

== ENCOUNTER 2024-08-21 15:47 | Outpatient (CLI) | payer MEDICARE, SELFPAY ==
--- NOTE | 2024-08-21 10:30 | DI.RAD_ITS ---
Exam(s) XR KNEE RT 2V AP,LAT EXAM: XR KNEE RT 2V AP,LAT CLINICAL HISTORY: F/U RIGHT UKA. TECHNIQUE: 2D digital imaging was performed. Two images were obtained. AP and lateral views were ob tained. COMPARISON: CR XR KNEE RT 2V AP,LAT from 06/19/2024 FINDINGS: BONES: There are stable post operative changes of a partial knee arthroplasty present. No fracture o r dislocation. 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 JOINTS: The orthopedic hardware is in good position. No evidence of hardware loosening. There is a small joint effusion. SOFT TISSUE: There is soft tissue swelling anterior to the knee. IMPRESSION: Stable right partial knee replacement. Small joint effusion and soft tissue swelling around the knee . DATA REPOSITORY: RADIATION DOSE DELIVERED:
== END 2024-08-21 15:48 | disposition home or self-care (01) ==
LOC: DIORS 15:47
PROVIDERS: PCP Family Medicine; Visit Provider Student in an Organized Health Care Education/Training Program
DX: M17.11 Unilateral primary osteoarthritis, right knee (principal); M70.41 Prepatellar bursitis, right knee
CPT/HCPCS: 99213; 73560

== ENCOUNTER → 2024-10-03 09:31 | Outpatient (BNVA) | payer MEDICARE, SELFPAY | PROVIDERS: PCP Family Medicine; Referring Provider Family Medicine; Visit Provider Podiatrist | DX: B35.1 Tinea unguium (principal); B35.3 Tinea pedis; I73.00 Raynaud's syndrome without gangrene; T69.1XXA Chilblains, initial encounter; M79.674 Pain in right toe(s); M79.675 Pain in left toe(s); L60.3 Nail dystrophy | CPT/HCPCS: 11721 ==

== ENCOUNTER 2024-10-15 15:50 | Outpatient (CLI) | payer MEDICARE, SELFPAY ==
--- NOTE | 2024-10-15 10:27 | DI.RAD_ITS ---
Exam(s) XR KNEE RT 2V AP,LAT EXAM: XR KNEE RT 2V AP,LAT CLINICAL HISTORY: F/U RIGHT UKA. TECHNIQUE: 2D digital imaging was performed. Two images were obtained. AP and lateral views were ob tained. COMPARISON: CR XR KNEE RT 2V AP,LAT from 08/21/2024 FINDINGS: BONES: There are stable post operative changes of a right unicompartmental knee arthroplasty present. No fracture or dislocation. 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 JOINTS: The orthopedic hardware is in good position. No evidence of hardware loosening. SOFT TISSUE: Normal. IMPRESSION: Stable unicompartmental right knee arthroplasty. DATA REPOSITORY: RADIATION DOSE DELIVERED:
== END 2024-10-15 15:51 | disposition home or self-care (01) ==
LOC: DIORS 15:50
PROVIDERS: PCP Family Medicine; Referring Provider Family Medicine; Visit Provider Student in an Organized Health Care Education/Training Program
DX: Z47.1 Aftercare following joint replacement surgery (principal); Z96.651 Presence of right artificial knee joint; M70.41 Prepatellar bursitis, right knee
CPT/HCPCS: 99213; 73560

== ENCOUNTER → 2024-11-25 08:54 | Outpatient (BNVA) | payer MEDICARE, SELFPAY | PROVIDERS: PCP Family Medicine; Visit Provider Psychiatry & Neurology Neurology | DX: I63.9 Cerebral infarction, unspecified (principal); M62.542 Muscle wasting and atrophy, not elsewhere classified, left hand | CPT/HCPCS: 99213 ==

== ENCOUNTER 2024-12-17 15:32 | Outpatient (CLI) | payer MEDICARE, SELFPAY ==
--- NOTE | 2024-12-17 08:30 | DI.RAD_ITS ---
Exam(s) XR KNEE RT 2V AP,LAT EXAM: XR KNEE RT 2V AP,LAT CLINICAL HISTORY: F/U RIGHT UKA. TECHNIQUE: 2D digital imaging was performed. Two images were obtained. AP and lateral views were ob tained. COMPARISON: CR XR KNEE RT 2V AP,LAT from 10/15/2024 FINDINGS: BONES: There are stable post operative changes of a right unilateral knee arthroplasty present. No f racture or dislocation. 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 JOINTS: The orthopedic hardware is in good position. No evidence of hardware loosening. There is a joint effusion. SOFT TISSUE: There is persistent soft tissue swelling seen anterior to the proximal tibia. IMPRESSION: Stable right unilateral knee arthroplasty. DATA REPOSITORY: RADIATION DOSE DELIVERED:
== END 2024-12-17 15:33 | disposition home or self-care (01) ==
LOC: DIORS 15:32
PROVIDERS: PCP Family Medicine; Referring Provider Family Medicine; Visit Provider Student in an Organized Health Care Education/Training Program
DX: M70.41 Prepatellar bursitis, right knee (principal); Z96.651 Presence of right artificial knee joint
CPT/HCPCS: 99213; 73560

== ENCOUNTER → 2025-01-30 09:29 | Outpatient (BNVA) | payer MEDICARE, SELFPAY | PROVIDERS: PCP Family Medicine; Referring Provider Family Medicine; Visit Provider Podiatrist | DX: T69.1XXA Chilblains, initial encounter (principal); I73.00 Raynaud's syndrome without gangrene; B35.1 Tinea unguium; B35.3 Tinea pedis; L60.3 Nail dystrophy; L60.2 Onychogryphosis; M79.674 Pain in right toe(s); M79.675 Pain in left toe(s); R60.0 Localized edema; R20.8 Other disturbances of skin sensation | CPT/HCPCS: 11721 ==

== ENCOUNTER 2025-02-14 12:29 | Outpatient (REF) | payer MEDICARE, SELFPAY ==
[2025-02-14 15:33] LABS: HCT 41.3 % (40.0-50.0); HGB 13.9 g/dL (13.5-17.5); MCH 34.1 pg (27.0-33.0); MCHC 33.7 % (32.0-36.0); MCV 101 fL (80-95); MPV 10.1 fL (8.0-11.0); Platelet Count 127 10^3/uL (130-400); RBC 4.08 10^6/uL (4.36-5.78); WBC 3.85 10^3/uL (4.4-10.8)
[2025-02-14 15:58] LABS: ALT 35 U/L (16-63); AST 35 U/L (15-37); Albumin 3.6 g/dL (3.4-5.0); Alkaline Phosphatase 69 U/L (46-116); Anion Gap 7.2 mmol/L (3-11); BUN 20 mg/dL (7-18); Bilirubin, Total 1.1 mg/dL (0.2-1.0); CO2 25.8 mmol/L (21.0-32.0); CREATININE 1.3 mg/dL (0.70-1.30); Calcium 8.9 mg/dL (8.5-10.1); Chloride 109 mmol/L (98-107); Estimated GFR 58.37 (mL/min/1.73m2); Glucose 94 mg/dL (74-106); Potassium 4.1 mmol/L (3.5-5.1); Sodium 142 mmol/L (136-145); TSH 2.09 uIU/mL (0.36-3.74); Total Protein 6.7 g/dL (6.4-8.2)
[2025-02-14 16:13] LABS: Calculated LDL 43 mg/dL (<100); Cholesterol 118 mg/dL (<200); HDL Cholesterol 69 mg/dL (>or=40); Triglyceride 32 mg/dL (<150)
== END 2025-02-14 12:30 | disposition home or self-care (01) ==
LOC: NCHCN 12:29
PROVIDERS: PCP Family Medicine; Visit Provider Family Medicine
DX: E03.9 Hypothyroidism, unspecified (principal); Z01.818 Encounter for other preprocedural examination; Z82.49 Family history of ischemic heart disease and other diseases of the circulatory system
CPT/HCPCS: 80053; 80061; 85027; 84443

== ENCOUNTER 2025-03-07 15:15 | Outpatient (REF) | payer MEDICARE, SELFPAY ==
[2025-03-07 19:47] LABS: Iron 106 ug/dL (65-175)
[2025-03-07 20:06] LABS: Ferritin 134 ng/mL (26-388); Vitamin B12 698 pg/mL (193-986)
[2025-03-13 09:12] LABS: Methylmalonic Acid 0.15 nmol/mL (<=0.40)
== END 2025-03-07 15:16 | disposition home or self-care (01) ==
LOC: NCHCN 15:15
PROVIDERS: PCP Family Medicine; Visit Provider Family Medicine
DX: E53.9 Vitamin B deficiency, unspecified (principal)
CPT/HCPCS: 80186; 82607; 82728; 83540

== ENCOUNTER 2025-04-23 11:30 | Outpatient (REF) | payer MEDICARE, SELFPAY ==
[2025-04-23 15:59] LABS: Abs Immature Grans 0.01 10^3/uL (0.0-0.06); Absolute Basophil Count 0.03 10^3/uL (0.0-0.2); Absolute Eosinophil Count 0.09 10^3/uL (0.0-0.7); Absolute Lymphocyte Count 1.81 10^3/uL (1.2-3.4); Absolute Monocyte Count 0.49 10^3/uL (0.1-0.8); Absolute Neutrophil Count 2.15 10^3/uL (1.2-6.7); Basophils % 0.7 %; HCT 42.1 % (40.0-50.0); HGB 14.6 g/dL (13.5-17.5); Immature Grans % 0.2 %; Lymphocytes % 39.5 %; MCH 33.3 pg (27.0-33.0); MCHC 34.7 % (32.0-36.0); MCV 96 fL (80-95); MPV 10.9 fL (8.0-11.0); Monocytes % 10.7 %; Neutrophils % 46.9 %; Platelet Count 119 10^3/uL (130-400); RBC 4.38 10^6/uL (4.36-5.78); RDW 11.9 % (11.8-14.1); RDW-SD 41.9 fL; WBC 4.58 10^3/uL (4.4-10.8)
[2025-04-23 16:20] LABS: Iron 112 ug/dL (65-175)
[2025-04-23 16:48] LABS: Ferritin 97 ng/mL (26-388); Vitamin B12 776 pg/mL (193-986)
[2025-04-23 16:53] LABS: Folate > 20.0 ng/mL (8.6-20.0)
[2025-04-25 09:13] LABS: ALT 35 U/L (16-63); AST 26 U/L (15-37); Alkaline Phosphatase 90 U/L (46-116); Total Protein 6.9 g/dL (6.4-8.2)
== END 2025-04-23 11:31 | disposition home or self-care (01) ==
LOC: NCHCN 11:30
PROVIDERS: PCP Family Medicine; Visit Provider Family Medicine
DX: E53.9 Vitamin B deficiency, unspecified (principal)
CPT/HCPCS: 82040; 82607; 82728; 82746; 83540; 84075; 84155; 84450; 84460; 85025

== ENCOUNTER 2025-04-23 13:01 | Outpatient (CLI) | payer MEDICARE, SELFPAY ==
--- NOTE | 2025-04-23 10:30 | DI.RAD_ITS ---
Exam(s) XR KNEE RT 2V AP,LAT EXAM: XR KNEE RT 2V AP,LAT CLINICAL HISTORY: F/U RIGHT UKA. TECHNIQUE: 2D digital imaging was performed. Three views. COMPARISON: CR XR KNEE RT 2V AP,LAT from 12/17/2024 FINDINGS: BONES: No acute fracture is present. No bony destructive lesion is seen. Tripartite patella again noted. JOINTS: The medial femoral tibial joint space prosthesis is normally aligned. No joint effusion is seen. SOFT TISSUE: Anterior soft tissue swelling which has decreased when compared with the previous exam. IMPRESSION: Stable appearance of medial femoral tibial joint space prosthesis. DATA REPOSITORY: RADIATION DOSE DELIVERED:
== END 2025-04-23 13:02 | disposition home or self-care (01) ==
LOC: DIORS 13:02
PROVIDERS: PCP Family Medicine; Visit Provider Student in an Organized Health Care Education/Training Program
DX: M17.11 Unilateral primary osteoarthritis, right knee (principal); M70.41 Prepatellar bursitis, right knee; Z96.651 Presence of right artificial knee joint; L76.34 Postprocedural seroma of skin and subcutaneous tissue following other procedure; Z86.73 Personal history of transient ischemic attack (TIA), and cerebral infarction without residual deficits
CPT/HCPCS: 99214; 73560

== ENCOUNTER → 2025-06-11 09:42 | Outpatient (BNVA) | payer MEDICARE, SELFPAY | PROVIDERS: PCP Family Medicine; Referring Provider Family Medicine; Visit Provider Podiatrist | DX: L60.3 Nail dystrophy (principal); B35.1 Tinea unguium; M79.674 Pain in right toe(s); M79.675 Pain in left toe(s); I73.00 Raynaud's syndrome without gangrene; B35.3 Tinea pedis; R23.0 Cyanosis; R09.89 Other specified symptoms and signs involving the circulatory and respiratory systems; R60.0 Localized edema; R20.8 Other disturbances of skin sensation; L65.9 Nonscarring hair loss, unspecified; L60.2 Onychogryphosis; L85.8 Other specified epidermal thickening | CPT/HCPCS: 11721 ==

== ENCOUNTER 2025-06-20 17:33 | Outpatient (REF) | payer MEDICARE, SELFPAY ==
[2025-06-20 15:45] LABS: HCT 40.1 % (40.0-50.0); HGB 13.4 g/dL (13.5-17.5); MCH 33.6 pg (27.0-33.0); MCHC 33.4 % (32.0-36.0); MCV 101 fL (80-95); MPV 11.0 fL (8.0-11.0); Platelet Count 105 10^3/uL (130-400); RBC 3.99 10^6/uL (4.36-5.78); RDW 12.5 % (11.8-14.1); RDW-SD 46.3 fL; WBC 3.52 10^3/uL (4.4-10.8)
[2025-06-20 16:20] LABS: ALT 39 U/L (16-63); AST 34 U/L (15-37); Albumin 3.8 g/dL (3.4-5.0); Alkaline Phosphatase 73 U/L (46-116); Anion Gap 6.2 mmol/L (3-11); BUN 15 mg/dL (7-18); Bilirubin, Total 1.3 mg/dL (0.2-1.0); CO2 30.8 mmol/L (21.0-32.0); Calcium 9.0 mg/dL (8.5-10.1); Chloride 105 mmol/L (98-107); Estimated GFR 63.85 (mL/min/1.73m2); Glucose 94 mg/dL (74-106); Potassium 4.3 mmol/L (3.5-5.1); Sodium 142 mmol/L (136-145); Total Protein 6.6 g/dL (6.4-8.2)
[2025-06-20 16:21] LABS: Hemoglobin A1C 5.3 % (<5.7)
[2025-06-20 22:25] LABS: PSA, Screening 0.5 ng/mL (<=6.5)
== END 2025-06-20 17:34 | disposition home or self-care (01) ==
LOC: NCHCN 17:33
PROVIDERS: PCP Family Medicine; Visit Provider Family Medicine
DX: Z13.1 Encounter for screening for diabetes mellitus (principal); I10 Essential (primary) hypertension; E03.9 Hypothyroidism, unspecified; E53.9 Vitamin B deficiency, unspecified; N40.0 Benign prostatic hyperplasia without lower urinary tract symptoms
CPT/HCPCS: 80053; 84153; 85027; 83036; 84439

== ENCOUNTER 2025-06-24 17:56 | Outpatient (REF) | payer MEDICARE, SELFPAY ==
[2025-06-27 14:23] LABS: Helicobacter pylori Ag, Feces Negative (Negative)
== END 2025-06-24 17:57 | disposition home or self-care (01) ==
LOC: NCHCN 17:56
PROVIDERS: PCP Family Medicine; Visit Provider Family Medicine
DX: R10.84 Generalized abdominal pain (principal)
CPT/HCPCS: 87338

== ENCOUNTER 2025-07-08 15:21 | Outpatient (REF) | payer MEDICARE, SELFPAY ==
[2025-07-08 15:11] LABS: Abs Immature Grans 0.02 10^3/uL (0.0-0.06); HCT 39.6 % (40.0-50.0); HGB 13.5 g/dL (13.5-17.5); Immature Grans % 0.5 %; MCH 33.8 pg (27.0-33.0); MCHC 34.1 % (32.0-36.0); MCV 99 fL (80-95); MPV 10.6 fL (8.0-11.0); Platelet Count 114 10^3/uL (130-400); RBC 3.99 10^6/uL (4.36-5.78); RDW 12.4 % (11.8-14.1); RDW-SD 45.3 fL; WBC 4.05 10^3/uL (4.4-10.8)
[2025-07-08 15:24] LABS: LDH 272 U/L (85-227); Uric Acid 7.1 mg/dL (3.5-7.2)
[2025-07-08 22:55] LABS: Total Protein 6.6 g/dL (6.3-8.2)
[2025-07-09 14:36] LABS: Albumin 60.4 % (55.8-66.1); Albumin g/dL 4.0 g/dL (3.6-5.2); Alpha 1 g/dL 0.30 g/dL (0.15-0.40); Alpha 2 g/dL 0.60 g/dL (0.50-1.00); Beta g/dL 0.70 g/dL (0.60-1.20); Gamma g/dL 1.00 g/dL (0.60-1.60)
== END 2025-07-08 15:22 | disposition home or self-care (01) ==
LOC: NCHCN 15:21
PROVIDERS: PCP Family Medicine; Visit Provider Family Medicine
DX: E53.8 Deficiency of other specified B group vitamins (principal)
CPT/HCPCS: 83615; 84165; 84550; 85025; 85045

== ENCOUNTER → 2025-07-30 08:01 | Outpatient (BNVA) | payer MEDICARE, SELFPAY | PROVIDERS: PCP Family Medicine; Referring Provider Family Medicine; Visit Provider Student in an Organized Health Care Education/Training Program | DX: Z47.89 Encounter for other orthopedic aftercare (principal); M17.11 Unilateral primary osteoarthritis, right knee; M70.41 Prepatellar bursitis, right knee | CPT/HCPCS: 99213 ==

== ENCOUNTER 2025-08-25 15:47 | Outpatient (CLI) | payer MEDICARE, SELFPAY ==
--- NOTE | 2025-08-25 14:15 | DI.RAD_ITS ---
Exam(s) XR HIP LT AP LAT ONLY EXAM: XR HIP LT AP LAT ONLY CLINICAL HISTORY: LEFT FEMUR FX. TECHNIQUE: 2D digital imaging was performed. COMPARISON: CR XR HIP RT AP LAT ONLY from 12/05/2019 CR XR HIP LEFT W PELVIS from 08/17/2025 FINDINGS: 3 views The recently described fracture in the greater trochanter of the left hip appears unchanged from outside images of 08/17/2025. No further displacement. No additional fractures evident. No obvious loosening of the prosthesis. No evidence of osteomyelitis. IMPRESSION: Greater trochanter fracture of the left hip noted, unchanged from prior outside images of 08/17/2025. DATA REPOSITORY: RADIATION DOSE DELIVERED:
== END 2025-08-25 15:48 | disposition home or self-care (01) ==
LOC: DIORS 15:47
PROVIDERS: PCP Family Medicine; Referring Provider Family Medicine; Visit Provider Student in an Organized Health Care Education/Training Program
DX: M97.8XXA Periprosthetic fracture around other internal prosthetic joint, initial encounter (principal); Z96.649 Presence of unspecified artificial hip joint; W19.XXXA Unspecified fall, initial encounter
CPT/HCPCS: 99213; 73502

== ENCOUNTER 2025-08-27 01:25 | Outpatient (CLI) | payer MEDICARE, SELFPAY ==
--- NOTE | 2025-08-27 | DI.US_ITS ---
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 COMPARISON: US US AAA SCREENING from 05/20/2022 US US AAA SCREENING from 01/31/2024 FINDINGS: ABDOMINAL AORTA AND IVC: Visualized portions normal caliber. PANCREAS: Normal where visualized. LIVER: Normal. Hepatopetal flow in the Portal Vein. No evidence of a hepatic mass. The liver measures 14.5cm long. GALLBLADDER:No evidence of cholelithiasis. No evidence of wall thickening. No pericholecystic fluid identified. BILIARY SYSTEM: Common bile duct measures < 7 mm. No intrahepatic biliary ductal dilation. ASHRAF'S SIGN: Negative. KIDNEYS: Kidneys are symmetric in size. No evidence of renal calculi. No evidence of hydronephrosis. No renal mass or cyst identified. SPLEEN: Not enlarged. ASCITES: None seen. IMPRESSION: Normal sonographic appearance of the upper abdomen. DATA REPOSITORY:
== END 2025-08-27 01:45 ==
LOC: DI 01:25
PROVIDERS: PCP Family Medicine; Visit Provider Internal Medicine Hematology & Oncology
DX: D69.9 Hemorrhagic condition, unspecified (principal)
CPT/HCPCS: 76700

== ENCOUNTER 2025-09-29 16:11 | Outpatient (CLI) | payer MEDICARE, SELFPAY ==
--- NOTE | 2025-09-29 14:30 | DI.RAD_ITS ---
Exam(s) XR HIP LT AP LAT ONLY EXAM: XR HIP LT AP LAT ONLY CLINICAL HISTORY: F/U L HIP FX. TECHNIQUE: 2D digital imaging was performed. Two images were obtained. AP and lateral views were obtained. COMPARISON: CR XR HIP LEFT W PELVIS from 08/17/2025 CR XR HIP LT AP LAT ONLY from 08/25/2025 FINDINGS: BONES: There are stable post operative changes of a left total hip arthroplasty present. There has been no change in alignment of the fracture through the greater trochanter. JOINTS: The orthopedic hardware is in good position. No evidence of hardware loosening. SOFT TISSUE: Normal. IMPRESSION: 1. Stable left total hip arthroplasty. 2. Stable alignment of the fracture through the left greater trochanter. DATA REPOSITORY: RADIATION DOSE DELIVERED:
== END 2025-09-29 16:12 | disposition home or self-care (01) ==
LOC: DIORS 16:11
PROVIDERS: PCP Family Medicine; Referring Provider Family Medicine; Visit Provider Student in an Organized Health Care Education/Training Program
DX: M97.02XD Periprosthetic fracture around internal prosthetic left hip joint, subsequent encounter (principal)
CPT/HCPCS: 99213; 73502